=== PATIENT | female | born 1985 | race Caucasian/White ===

== ENCOUNTER 2016-08-19 20:37 | Emergency (ER) | payer OTHER ==
--- NOTE | 2016-08-20 00:15 | ED CLINICAL REPORT ---
Clinical Report - Physicians/Mid Levels [facility] [address] [place] [address] 08/19/2016 20:41 [id number] Time Seen: 00:15 Aug 20 2016; initial documentation. Arrived- By private vehicle. Historian- patient. CPT: ER phys charges level 3 (#[id number]). HISTORY OF PRESENT ILLNESS Chief Complaint: Injury to the left ankle. The injury happened yesterday. Occurred at home. ( scraped left ankle). Patient is experiencing mild pain. No other injury. REVIEW OF SYSTEMS The patient complains of pain on weight bearing. No swelling, tingling, weakness, numbness or suspected foreign body. No skin laceration. All systems otherwise negative, except as recorded above. PAST HISTORY See nurses notes. Tetanus immunization status is up-to-date. Medications: [place] Oral 300 mg , daily. Suboxone Sublingual 8mg , 2 x daily. ZyPREXA Oral 5 mg, daily. Allergies: Atropine. (Reaction as baby). SOCIAL HISTORY Heavy tobacco smoker (cigarette)- less than 1 pack per day. Alcohol use. History of drug use: marijuana. ADDITIONAL NOTES The nursing notes have been reviewed. PHYSICAL EXAM Vital Signs: 08/19/2016 22:01 BP: 141/82. HR: 86. RR: 18. O2 saturation: 100%. Temp: 98.1 F. Pain level now: 3/10. CVS: Normal heart rate and rhythm. Heart sounds normal. Respiratory: No respiratory distress. Back: No tenderness. Skin: Skin warm. Extremities: Warmth, tenderness and erythema present in the left ankle. No lymphangitis in the feet or ankles or fluctuance in the feet or ankles. Moderate soft-tissue tenderness in the left lateral ankle. No ankle injury. Extremities otherwise negative. Gait: Limping gait. Neuro, Vascular and Tendons: Vascular status intact. Sensation intact. Motor intact. Neuro: Oriented X 3. No motor deficit. No sensory deficit. PROGRESS AND PROCEDURES Patient/family counseled. Disposition: Discharged. Condition: stable. CLINICAL IMPRESSION Cellulitis of the left ankle. INSTRUCTIONS Apply moist heat for 15-20 minutes three times a day for three days until better. Do not work for two days until better. Warnings: GENERAL WARNINGS: Return or contact your physician immediately if your condition worsens or changes unexpectedly, if not improving as expected, or if other problems arise. Your Current Medications: CONTINUE TAKING THE FOLLOWING MEDICATIONS: [place] Oral : 300 mg daily. Suboxone Sublingual : 8mg 2 x daily. ZyPREXA Oral : 5 mg daily. Prescription Medications: Trimethoprim-Sulfamethoxazole DS: take 1 tablet orally every 12 hours for 7 days. Dispense fourteen (14). No refills. Follow-up: Return to the emergency department If worse. Follow up with your doctor Monday in three days if not better. Understanding of the discharge instructions verbalized by patient and family. (Electronically signed by Mikhail Rodriges MD 08/21/2016 21:23)
--- NOTE | 2016-08-20 00:15 | ED CLINICAL REPORT ---
Clinical Report - Physicians/Mid Levels [facility] [address] [place] [address] 08/19/2016 20:41 [id number] Time Seen: 00:15 Aug 20 2016; initial documentation. Arrived- By private vehicle. Historian- patient. CPT: ER phys charges level 3 (#[id number]). HISTORY OF PRESENT ILLNESS Chief Complaint: Injury to the left ankle. The injury happened yesterday. Occurred at home. ( scraped left ankle). Patient is experiencing mild pain. No other injury. REVIEW OF SYSTEMS The patient complains of pain on weight bearing. No swelling, tingling, weakness, numbness or suspected foreign body. No skin laceration. All systems otherwise negative, except as recorded above. PAST HISTORY See nurses notes. Tetanus immunization status is up-to-date. Medications: [place] Oral 300 mg , daily. Suboxone Sublingual 8mg , 2 x daily. ZyPREXA Oral 5 mg, daily. Allergies: Atropine. (Reaction as baby). SOCIAL HISTORY Heavy tobacco smoker (cigarette)- less than 1 pack per day. Alcohol use. History of drug use: marijuana. ADDITIONAL NOTES The nursing notes have been reviewed. PHYSICAL EXAM Vital Signs: 08/19/2016 22:01 BP: 141/82. HR: 86. RR: 18. O2 saturation: 100%. Temp: 98.1 F. Pain level now: 3/10. CVS: Normal heart rate and rhythm. Heart sounds normal. Respiratory: No respiratory distress. Back: No tenderness. Skin: Skin warm. Extremities: Warmth, tenderness and erythema present in the left ankle. No lymphangitis in the feet or ankles or fluctuance in the feet or ankles. Moderate soft-tissue tenderness in the left lateral ankle. No ankle injury. Extremities otherwise negative. Gait: Limping gait. Neuro, Vascular and Tendons: Vascular status intact. Sensation intact. Motor intact. Neuro: Oriented X 3. No motor deficit. No sensory deficit. PROGRESS AND PROCEDURES Patient/family counseled. Disposition: Discharged. Condition: stable. CLINICAL IMPRESSION Cellulitis of the left ankle. INSTRUCTIONS Apply moist heat for 15-20 minutes three times a day for three days until better. Do not work for two days until better. Warnings: GENERAL WARNINGS: Return or contact your physician immediately if your condition worsens or changes unexpectedly, if not improving as expected, or if other problems arise. Your Current Medications: CONTINUE TAKING THE FOLLOWING MEDICATIONS: [place] Oral : 300 mg daily. Suboxone Sublingual : 8mg 2 x daily. ZyPREXA Oral : 5 mg daily. Prescription Medications: Trimethoprim-Sulfamethoxazole DS: take 1 tablet orally every 12 hours for 7 days. Dispense fourteen (14). No refills. Follow-up: Return to the emergency department If worse. Follow up with your doctor Monday in three days if not better. Understanding of the discharge instructions verbalized by patient and family. (Electronically signed by Mikhail Rodriges MD 08/21/2016 21:23)
--- NOTE | 2016-08-20 00:16 | ED NURSING NOTES ---
Clinical Report - Nurses [facility] [address] [place] [address] 08/19/2016 20:41 Patient: JIMBO GUSMAN TRIAGE Triage time 22:01. Acuity: LEVEL 4. Chief Complaint: LEFT LOWER EXTREMITY SWELLING and REDNESS. Location of symptoms- left ankle (Sore on out side of left ankle). 22:07. Alert. SEPSIS SCREEN: Sepsis Screen. Negative (no infection suspected/documented). MED COMA SCORE: Med Coma Scale: 15- eyes open spontaneously (4); best verbal response- oriented x 4 (5); best motor response- obeys commands (6). --22:08 Nba Roblero R.N. 22:01 08/19/16. BP: 141/82. HR: 86. RR: 18. O2 saturation: 100% on room air. Temp: 98.1 F (oral). Pain level now: 10/21. --22:08 Nba Roblero R.N. Weight: 77.1 kg stated. Height/Length: 65 inches Per Patient. BMI: 28.3. --22:05 Nba Roblero R.N. Medications [place] Oral 300 mg , daily. Suboxone Sublingual 8mg , 2 x daily. ZyPREXA Oral 5 mg, daily. --22:04 Nba Roblero R.N. Medication/allergy information source: the patient. --22:08 Nba Roblero R.N. Allergies Atropine. (Reaction as baby) --22:04 Nba Roblero R.N. History Arrived by private vehicle. Historian: patient. Primary physician (Sanam HUTSON). An injury may have occurred. This occurred (3 days ago). Treatment CONTRACT ASSOCIATE: None. PAST MEDICAL HX: Tetanus status: up-to-date. Immunizations: up-to-date. Last normal menstrual period- 1 year ago. SOCIAL HX: Current every day heavy tobacco smoker- 1 pack per day. Occasional alcohol use. History of drug use: marijuana. (daily). No infectious disease exposure. ABUSE ASSESSMENT: No report of abuse. FALL RISK ASSESSMENT: Fall risk assessment completed. No fall risk identified. NUTRITIONAL RISK ASSESSMENT: The nutritional risk assessment revealed no deficiencies. FUNCTIONAL ASSESSMENT: Functional assessment: no impairments noted. LEARNING NEEDS ASSESSMENT: The learning needs assessment revealed no barriers. SKIN INTEGRITY ASSESSMENT: Skin integrity risk assessment completed. No skin integrity risk identified. --22:08 Nba Roblero R.N. PROBLEMS: MRSA Infection. Abscess. --22:04 Nba Roblero R.N. ADDITIONAL SURGERIES: [place] Teeth. --22:04 Nba Roblero R.N. Interventions ID band on patient. To treatment room. --22:08 Nba Roblero R.N. PHYSICAL ASSESSMENT Ambulatory to room. GENERAL / NEURO / PSYCH: Oriented X 4. Alert. Appears in no acute distress. EXTREMITIES: Left foot: swelling and erythema of the lateral aspect of the foot. SKIN: Skin intact. Skin is warm and dry. --23:25 Ashley Herzog R.N. NURSING PROGRESS NOTES <<STRICKEN ENTRY-- 23:10 08/19/16. Patient gowned. Two patient identifiers checked. Call light placed in reach. Side rails up x 1. Bed placed in lowest position. Brakes of bed on. Patient ready for evaluation. ( Patient brought to room). --23:16 Emerald Burton R.N. --END STRIKE>> Charted On Wrong Patient --23:17 Emerald Burton R.N. DISPOSITION / DISCHARGE Departure time: 0020. Condition at departure: unchanged. No learning barriers present. Reviewed medication(s). Prescription(s) given to the patient (Bactrim DS). Patient verbalized understanding. Written instructions provided in Italian. The patient was discharged by the physician. She was discharged home and accompanied by family. She left the Emergency Department ambulatory and via private vehicle. Family member driving. Medication list reviewed and validated with the patient. --04:42 Ashley Herzog R.N. 00:20 08/20/16. BP: deferred. HR: deferred. RR: deferred. O2 saturation: deferred. Temp: deferred. Pain level now deferred. Additional comments: pt refused vital signs. . --04:42 Ashley Herzog R.N. Locked/Released at 08/20/2016 4:42 by Ashley Herzog R.N.
--- NOTE | 2016-08-20 00:16 | ED NURSING NOTES ---
Clinical Report - Nurses [facility] [address] [place] [address] 08/19/2016 20:41 Patient: JIMBO GUSMAN TRIAGE Triage time 22:01. Acuity: LEVEL 4. Chief Complaint: LEFT LOWER EXTREMITY SWELLING and REDNESS. Location of symptoms- left ankle (Sore on out side of left ankle). 22:07. Alert. SEPSIS SCREEN: Sepsis Screen. Negative (no infection suspected/documented). MED COMA SCORE: Med Coma Scale: 15- eyes open spontaneously (4); best verbal response- oriented x 4 (5); best motor response- obeys commands (6). --22:08 Nba Roblero R.N. 22:01 08/19/16. BP: 141/82. HR: 86. RR: 18. O2 saturation: 100% on room air. Temp: 98.1 F (oral). Pain level now: 10/21. --22:08 Nba Roblero R.N. Weight: 77.1 kg stated. Height/Length: 65 inches Per Patient. BMI: 28.3. --22:05 Nba Roblero R.N. Medications [place] Oral 300 mg , daily. Suboxone Sublingual 8mg , 2 x daily. ZyPREXA Oral 5 mg, daily. --22:04 Nba Roblero R.N. Medication/allergy information source: the patient. --22:08 Nba Roblero R.N. Allergies Atropine. (Reaction as baby) --22:04 Nba Roblero R.N. History Arrived by private vehicle. Historian: patient. Primary physician (Sanam HUTSON). An injury may have occurred. This occurred (3 days ago). Treatment PATHOLOGIST: None. PAST MEDICAL HX: Tetanus status: up-to-date. Immunizations: up-to-date. Last normal menstrual period- 1 year ago. SOCIAL HX: Current every day heavy tobacco smoker- 1 pack per day. Occasional alcohol use. History of drug use: marijuana. (daily). No infectious disease exposure. ABUSE ASSESSMENT: No report of abuse. FALL RISK ASSESSMENT: Fall risk assessment completed. No fall risk identified. NUTRITIONAL RISK ASSESSMENT: The nutritional risk assessment revealed no deficiencies. FUNCTIONAL ASSESSMENT: Functional assessment: no impairments noted. LEARNING NEEDS ASSESSMENT: The learning needs assessment revealed no barriers. SKIN INTEGRITY ASSESSMENT: Skin integrity risk assessment completed. No skin integrity risk identified. --22:08 Nba Roblero R.N. PROBLEMS: MRSA Infection. Abscess. --22:04 Nba Roblero R.N. ADDITIONAL SURGERIES: [place] Teeth. --22:04 Nba Roblero R.N. Interventions ID band on patient. To treatment room. --22:08 Nba Roblero R.N. PHYSICAL ASSESSMENT Ambulatory to room. GENERAL / NEURO / PSYCH: Oriented X 4. Alert. Appears in no acute distress. EXTREMITIES: Left foot: swelling and erythema of the lateral aspect of the foot. SKIN: Skin intact. Skin is warm and dry. --23:25 Ashley Herzog R.N. NURSING PROGRESS NOTES <<STRICKEN ENTRY-- 23:10 08/19/16. Patient gowned. Two patient identifiers checked. Call light placed in reach. Side rails up x 1. Bed placed in lowest position. Brakes of bed on. Patient ready for evaluation. ( Patient brought to room). --23:16 Emerald Burton R.N. --END STRIKE>> Charted On Wrong Patient --23:17 Emerald Burton R.N. DISPOSITION / DISCHARGE Departure time: 0020. Condition at departure: unchanged. No learning barriers present. Reviewed medication(s). Prescription(s) given to the patient (Bactrim DS). Patient verbalized understanding. Written instructions provided in Yi. The patient was discharged by the physician. She was discharged home and accompanied by family. She left the Emergency Department ambulatory and via private vehicle. Family member driving. Medication list reviewed and validated with the patient. --04:42 Ashley Herzog R.N. 00:20 08/20/16. BP: deferred. HR: deferred. RR: deferred. O2 saturation: deferred. Temp: deferred. Pain level now deferred. Additional comments: pt refused vital signs. . --04:42 Ashley Herzog R.N. Locked/Released at 08/20/2016 4:42 by Ashley Herzog R.N.
--- NOTE | 2016-08-21 21:24 | ED MED RECONCILIATION SUMMARY ---
Patient: JIMBO GSUMAN Medication Reconciliation Report [facility] VisitID: [id number] [address] [place] [address] 31y, F Registration Date/Time: 08/19/2016 Weight: 77.1 kg Height/Length: 65 in. BMI: 28.3 ALLERGIES: Atropine The patient's Home Medications are listed below: CONTINUE TAKING THE FOLLOWING MEDICATIONS: [place] Oral 300 mg , daily Suboxone Sublingual 8mg , 2 x daily ZyPREXA Oral 5 mg, daily The source(s) of the original Home Medication information: patient The following Medications were given to the patient in the Emergency Department: None. The following Medications were prescribed to the patient: Trimethoprim-Sulfamethoxazole DS: take 1 tablet orally every 12 hours for 7 days. Dispense fourteen (14). No refills. -- Mikhail Rodriges MD
--- NOTE | 2016-08-21 21:24 | ED DISCHARGE INSTRUCTIONS ---
Patient: JIMBO GUSMAN General Instructions [facility] VisitID: [id number] [place] [address] 31y, F Registration Date/Time: 08/19/2016 Cellulitis of the left ankle. INSTRUCTIONS Apply moist heat for 15-20 minutes three times a day for three days until better. Do not work for two days until better. Warnings: GENERAL WARNINGS: Return or contact your physician immediately if your condition worsens or changes unexpectedly, if not improving as expected, or if other problems arise. Your Current Medications: CONTINUE TAKING THE FOLLOWING MEDICATIONS: [place] Oral : 300 mg daily. Suboxone Sublingual : 8mg 2 x daily. ZyPREXA Oral : 5 mg daily. Prescription Medications: Trimethoprim-Sulfamethoxazole DS: take 1 tablet orally every 12 hours for 7 days. Dispense fourteen (14). No refills. Follow-up: Return to the emergency department If worse. Follow up with your doctor Monday in three days if not better. Understanding of the discharge instructions verbalized by patient and family. ADDITIONAL INFORMATION Cellulitis You have an infection of the skin known as cellulitis. This usually starts with a scrape, cut, insect bite, blister or other opening in the skin which becomes infected. This is a serious condition. It must be watched closely to be sure the infection is not spreading. With antibiotic treatment, the size of the red area will gradually shrink in size until the skin returns to normal. This will take 7-10 days. The red area should never increase in size once the antibiotic medicine has been started. Occasionally, an infection will be resistant to one antibiotic and another one will have to be used. Home Care: 1) Limit the use of the affected part, since excess movement can cause the infection to spread. 2) If the infection is on your leg, walk as little as possible during the first few days of the treatment. Keep your leg elevated while sitting. This will reduce swelling. 3) Take all of the antibiotic medicine exactly as directed until it is gone. Be careful not to miss any doses, especially during the first seven days. Follow Up with your doctor or this facility as directed. Check the infected area daily for the warning signs listed below. Get Prompt Medical Attention if any of the following occur: -- Spreading area of redness -- Increasing swelling or pain -- Appearance of pus or drainage -- Fever over 100.4 F (38.0 C) oral, or over 101.4 F (38.6 C) rectal, after two days on antibiotics You have been given the following additional information: Cellulitis Do not work for two days until better. (Electronically signed by Mikhail Rodriges MD 08/21/2016 21:23)
--- NOTE | 2016-08-21 21:24 | ED MAR SUMMARY ---
..... Medication Administration Record [facility] [address] [place], [place] [id number] Patient: JIMBO GUSMAN Visit ID: [id number] 31y, F Weight: 77.1 kg Height/Length: 65 in BMI: 28.3 ALLERGIES: Atropine
--- NOTE | 2016-08-21 21:24 | ED MAR SUMMARY ---
..... Medication Administration Record [facility] [address] [place], [place] [id number] Patient: JIMBO GUSMAN Visit ID: [id number] 31y, F Weight: 77.1 kg Height/Length: 65 in BMI: 28.3 ALLERGIES: Atropine
--- NOTE | 2016-08-21 21:24 | ED MED RECONCILIATION SUMMARY ---
Patient: JIMBO GUSMAN Medication Reconciliation Report [facility] VisitID: [id number] [address] [place] [address] 31y, F Registration Date/Time: 08/19/2016 Weight: 77.1 kg Height/Length: 65 in. BMI: 28.3 ALLERGIES: Atropine The patient's Home Medications are listed below: CONTINUE TAKING THE FOLLOWING MEDICATIONS: [place] Oral 300 mg , daily Suboxone Sublingual 8mg , 2 x daily ZyPREXA Oral 5 mg, daily The source(s) of the original Home Medication information: patient The following Medications were given to the patient in the Emergency Department: None. The following Medications were prescribed to the patient: Trimethoprim-Sulfamethoxazole DS: take 1 tablet orally every 12 hours for 7 days. Dispense fourteen (14). No refills. -- Mikhail Rodriges MD
--- NOTE | 2016-08-21 21:24 | ED DISCHARGE INSTRUCTIONS ---
Patient: JIMBO GUSMAN General Instructions [facility] VisitID: [id number] [place] [address] 31y, F Registration Date/Time: 08/19/2016 Cellulitis of the left ankle. INSTRUCTIONS Apply moist heat for 15-20 minutes three times a day for three days until better. Do not work for two days until better. Warnings: GENERAL WARNINGS: Return or contact your physician immediately if your condition worsens or changes unexpectedly, if not improving as expected, or if other problems arise. Your Current Medications: CONTINUE TAKING THE FOLLOWING MEDICATIONS: [place] Oral : 300 mg daily. Suboxone Sublingual : 8mg 2 x daily. ZyPREXA Oral : 5 mg daily. Prescription Medications: Trimethoprim-Sulfamethoxazole DS: take 1 tablet orally every 12 hours for 7 days. Dispense fourteen (14). No refills. Follow-up: Return to the emergency department If worse. Follow up with your doctor Monday in three days if not better. Understanding of the discharge instructions verbalized by patient and family. ADDITIONAL INFORMATION Cellulitis You have an infection of the skin known as cellulitis. This usually starts with a scrape, cut, insect bite, blister or other opening in the skin which becomes infected. This is a serious condition. It must be watched closely to be sure the infection is not spreading. With antibiotic treatment, the size of the red area will gradually shrink in size until the skin returns to normal. This will take 7-10 days. The red area should never increase in size once the antibiotic medicine has been started. Occasionally, an infection will be resistant to one antibiotic and another one will have to be used. Home Care: 1) Limit the use of the affected part, since excess movement can cause the infection to spread. 2) If the infection is on your leg, walk as little as possible during the first few days of the treatment. Keep your leg elevated while sitting. This will reduce swelling. 3) Take all of the antibiotic medicine exactly as directed until it is gone. Be careful not to miss any doses, especially during the first seven days. Follow Up with your doctor or this facility as directed. Check the infected area daily for the warning signs listed below. Get Prompt Medical Attention if any of the following occur: -- Spreading area of redness -- Increasing swelling or pain -- Appearance of pus or drainage -- Fever over 100.4 F (38.0 C) oral, or over 101.4 F (38.6 C) rectal, after two days on antibiotics You have been given the following additional information: Cellulitis Do not work for two days until better. (Electronically signed by Mikhail Rodriges MD 08/21/2016 21:23)
== END 2016-08-20 00:20 | disposition home or self-care (01) ==
LOC: ED SRH 20:37
DX: L03.116 Cellulitis of left lower limb (principal); X58.XXXA Exposure to other specified factors, initial encounter; Y93.9 Activity, unspecified; Y92.009 Unspecified place in unspecified non-institutional (private) residence as the place of occurrence of the external cause; Y99.9 Unspecified external cause status; Z79.899 Other long term (current) drug therapy; F17.210 Nicotine dependence, cigarettes, uncomplicated; Z88.8 Allergy status to other drugs, medicaments and biological substances

== ENCOUNTER 2016-11-05 00:33 | Emergency (ER) | payer OTHER ==
--- NOTE | 2016-11-05 04:33 | ED NURSING NOTES ---
Clinical Report - Nurses [facility] [address] [place] [address] 11/05/2016 0:33 Patient: MICHAELA GUSMAN TRIAGE Triage time 00:52. Acuity: LEVEL 4. Chief Complaint: RIGHT EAR PAIN and SWEATS (Onset of ear pain 3-4 days ago; describes pain as throbbing and hot, pain radiates down to jaw. Alleviating factors: none, Aggravating factors: touching it, lying on it.). Alert. No acute distress. SEPSIS SCREEN: Sepsis Screen: negative. Negative (no infection suspected/documented). --00:59 Boy Elizondo R.N. 00:52 11/05/16. BP: 133/86 (regular adult cuff) taken on the right arm, via an automated monitor, while sitting. HR: 84 (normal rate). RR: 16 (regular, unlabored and normal). O2 saturation: 100% on room air. Temp: 98.2 F (oral). Pain level now: 03/23. --00:59 Boy Elizondo R.N. correction to prior entry -00:59. --01:00 Boy Elizondo R.N. Weight: 90.7 kg stated. Height/Length: 65 inches Per Patient. BMI: 33.3. --00:53 Boy Elizondo R.N. Medications [place] Oral 300 mg , daily. Suboxone Sublingual 8mg , 2 x daily. ZyPREXA Oral 5 mg, daily. --04:42 Emerald Burton R.N. Allergies Atropine. (Reaction as baby) --04:42 Emerald Burton R.N. History Arrived by private vehicle. Historian: patient. Unaccompanied. Primary physician (None). Onset. (about 3 - 4 days ago). She has had severe right ear pain radiating to the jaw. 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 (Last dose (400 mg) around 1700 11/04/16 with no relief of pain.). PAST MEDICAL HX: Last normal menstrual period- Never had regular period. Denies current . SOCIAL HX: Current every day heavy tobacco smoker (cigarette)- 1 pack per day. Occasional alcohol use. History of occasional drug use: marijuana. She has not traveled outside the [place] The patient was exposed to MRSA. ABUSE ASSESSMENT: Abuse assessment: The patient was asked "Do you feel safe in your home?" and "Has anyone hurt you or threatened to hurt you?". No report of abuse. SELF HARM ASSESSMENT: A self harm assessment was performed. The patient answered "no" to the question "Do you have thoughts of harming or killing yourself?" and "Have you recently had thoughts about harming or killing others?". FALL RISK ASSESSMENT: Fall risk assessment completed. No fall risk identified. NUTRITIONAL RISK ASSESSMENT: The nutritional risk assessment revealed no deficiencies. FUNCTIONAL ASSESSMENT: Functional assessment: no impairments noted. LEARNING NEEDS ASSESSMENT: The learning needs assessment revealed no barriers. SKIN INTEGRITY ASSESSMENT: Skin integrity risk assessment completed. No skin integrity risk identified. --00:59 Boy Elizondo R.N. PROBLEMS: MRSA Infection. Substance Abuse. Cellulitis. --04:42 Emerald Burton R.N. ADDITIONAL SURGERIES: [place] . [place] Teeth. --04:42 Emerald Burton R.N. Assessment GENERAL / NEURO / PSYCH: Alert. Oriented X 4. Appears in no acute distress. Med Coma Scale: 15- eyes open spontaneously (4); best verbal response- oriented x 4 (5); best motor response- obeys commands (6). Patient appears calm and cooperative. HEENT: Erythema and pain upon movement of the right auricle; inflammation and cerumen present in the right external auditory canal; right TM reveals erythema. Inflammation present in the left external auditory canal; left TM reveals erythema. No pain upon movement of the left auricle. RESPIRATORY: Respirations not labored. SKIN: Skin is warm and dry. --00:59 Boy Elizondo R.N. Interventions ID band on patient. To treatment room. --00:59 Boy Elizondo R.N. To waiting room. --01:00 DeElena, Boy, R.N. PHYSICAL ASSESSMENT 03:38 11/05/16. GENERAL / NEURO / PSYCH: Alert. Appears in pain. HEENT: No facial asymmetry noted. Pupils equal, round and reactive to light. Pain upon movement of the right auricle; inflammation present in the right external auditory canal. No nasal discharge. No hearing deficit. RESPIRATORY: Respirations not labored. CVS: Capillary refill less than 2 seconds. SKIN: Skin is warm and dry. --03:38 Emerald Burton R.N. NURSING PROGRESS NOTES 02:56 11/05/16. Patient ready for evaluation- ED physician notified. ( Brought to room 4, ready for exam). --02:56 Emerald Burton R.N. 02:56 11/05/16. BP: 129/88. HR: 86. RR: 18. O2 saturation: 100%. Temp: 98.4 F. Pain level now 8/10. --02:56 Emerald Burton R.N. 03:30 11/05/2016 FJCZWAO-CGODTG-ALFRO PERTUSSIS IM 0.5 mL given. (Lot#: [id number], expiration date: 05/21/2018, Accountant Budget: sanofi pasteur). Given in the left deltoid. Allergies verified and confirmed 5 rights. Vaccine information statement provided to the patient. --03:35 Emerald Burton R.N. 03:38 11/05/2016 Lidocaine-Epinephrine (Lidocaine-Epinephrine) Injection Injectable 2 % given. (MED GIVEN TO MD FOR LOCAL ADMINISTRATION). --03:38 Emerald Burton R.N. 03:54 11/05/2016 Toradol (Ketorolac Tromethamine) IM 60 mg given. Given in the left gluteus catracho. Allergies verified and confirmed 5 rights. --03:55 Emerald Burton R.N. 04:20. I & D: Incision and Drainage of abscess performed by ED physician. Assisted by one tech. Preparation: Incision and Drainage tray set up. Procedure; a small amount of pus was drained. Cavity was irrigated with saline and packed with gauze. A dressing was applied. --04:28 McQuoid, Michaela, ER Tech1. DISPOSITION / DISCHARGE 04:41 11/05/16. Departure time: 04:41 Nov 05 2016. Condition at departure: improved and stable. The goals identified in the patient's plan of care were met. No learning barriers present. Reviewed medication(s) side effects, precautions, dosing and course information. Prescription(s) given to the patient. Reviewed referral to a primary care physician for followup. Summary of care provided to patient via paper. Patient verbalized understanding. Written instructions provided in Portuguese. The patient was discharged home and unaccompanied at time of discharge. She left the Emergency Department ambulatory and via private vehicle. Patient driving. --04:41 Emerald Burton R.N. 04:41 11/05/16. BP: 118/73. HR: 74. RR: 15. O2 saturation: 100%. Temp: 97.9 F. Pain level now 3/10. --04:41 Emerald Burton R.N. Locked/Released at 11/05/2016 4:43 by Emerald Burton R.N.
--- NOTE | 2016-11-05 04:33 | ED NURSING NOTES ---
Clinical Report - Nurses [facility] [address] [place] [address] 11/05/2016 0:33 Patient: MICHAELA GUSMAN TRIAGE Triage time 00:52. Acuity: LEVEL 4. Chief Complaint: RIGHT EAR PAIN and SWEATS (Onset of ear pain 3-4 days ago; describes pain as throbbing and hot, pain radiates down to jaw. Alleviating factors: none, Aggravating factors: touching it, lying on it.). Alert. No acute distress. SEPSIS SCREEN: Sepsis Screen: negative. Negative (no infection suspected/documented). --00:59 Boy Elizondo R.N. 00:52 11/05/16. BP: 133/86 (regular adult cuff) taken on the right arm, via an automated monitor, while sitting. HR: 84 (normal rate). RR: 16 (regular, unlabored and normal). O2 saturation: 100% on room air. Temp: 98.2 F (oral). Pain level now: 03/23. --00:59 Boy Elizondo R.N. correction to prior entry -00:59. --01:00 Boy Elizondo R.N. Weight: 90.7 kg stated. Height/Length: 65 inches Per Patient. BMI: 33.3. --00:53 Boy Elizondo R.N. Medications [place] Oral 300 mg , daily. Suboxone Sublingual 8mg , 2 x daily. ZyPREXA Oral 5 mg, daily. --04:42 Emerald Burton R.N. Allergies Atropine. (Reaction as baby) --04:42 Emerald Burton R.N. History Arrived by private vehicle. Historian: patient. Unaccompanied. Primary physician (None). Onset. (about 3 - 4 days ago). She has had severe right ear pain radiating to the jaw. 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 (Last dose (400 mg) around 1700 11/04/16 with no relief of pain.). PAST MEDICAL HX: Last normal menstrual period- Never had regular period. Denies current . SOCIAL HX: Current every day heavy tobacco smoker (cigarette)- 1 pack per day. Occasional alcohol use. History of occasional drug use: marijuana. She has not traveled outside the [place] The patient was exposed to MRSA. ABUSE ASSESSMENT: Abuse assessment: The patient was asked "Do you feel safe in your home?" and "Has anyone hurt you or threatened to hurt you?". No report of abuse. SELF HARM ASSESSMENT: A self harm assessment was performed. The patient answered "no" to the question "Do you have thoughts of harming or killing yourself?" and "Have you recently had thoughts about harming or killing others?". FALL RISK ASSESSMENT: Fall risk assessment completed. No fall risk identified. NUTRITIONAL RISK ASSESSMENT: The nutritional risk assessment revealed no deficiencies. FUNCTIONAL ASSESSMENT: Functional assessment: no impairments noted. LEARNING NEEDS ASSESSMENT: The learning needs assessment revealed no barriers. SKIN INTEGRITY ASSESSMENT: Skin integrity risk assessment completed. No skin integrity risk identified. --00:59 Boy Elizondo R.N. PROBLEMS: MRSA Infection. Substance Abuse. Cellulitis. --04:42 Emerald Burton R.N. ADDITIONAL SURGERIES: [place] . [place]eth. --04:42 Emerald Burton R.N. Assessment GENERAL / NEURO / PSYCH: Alert. Oriented X 4. Appears in no acute distress. Med Coma Scale: 15- eyes open spontaneously (4); best verbal response- oriented x 4 (5); best motor response- obeys commands (6). Patient appears calm and cooperative. HEENT: Erythema and pain upon movement of the right auricle; inflammation and cerumen present in the right external auditory canal; right TM reveals erythema. Inflammation present in the left external auditory canal; left TM reveals erythema. No pain upon movement of the left auricle. RESPIRATORY: Respirations not labored. SKIN: Skin is warm and dry. --00:59 Boy Elizondo R.N. Interventions ID band on patient. To treatment room. --00:59 Boy Elizondo R.N. To waiting room. --01:00 DeElena, Boy, R.N. PHYSICAL ASSESSMENT 03:38 11/05/16. GENERAL / NEURO / PSYCH: Alert. Appears in pain. HEENT: No facial asymmetry noted. Pupils equal, round and reactive to light. Pain upon movement of the right auricle; inflammation present in the right external auditory canal. No nasal discharge. No hearing deficit. RESPIRATORY: Respirations not labored. CVS: Capillary refill less than 2 seconds. SKIN: Skin is warm and dry. --03:38 Emerald Burton R.N. NURSING PROGRESS NOTES 02:56 11/05/16. Patient ready for evaluation- ED physician notified. ( Brought to room 4, ready for exam). --02:56 Emerald Burton R.N. 02:56 11/05/16. BP: 129/88. HR: 86. RR: 18. O2 saturation: 100%. Temp: 98.4 F. Pain level now 8/10. --02:56 Emerald Burton R.N. 03:30 11/05/2016 YGBUTNG-AILDZM-EHXPI PERTUSSIS IM 0.5 mL given. (Lot#: [id number], expiration date: 05/21/2018, Loss Prevention Manager: sanofi pasteur). Given in the left deltoid. Allergies verified and confirmed 5 rights. Vaccine information statement provided to the patient. --03:35 Emerald Burton R.N. 03:38 11/05/2016 Lidocaine-Epinephrine (Lidocaine-Epinephrine) Injection Injectable 2 % given. (MED GIVEN TO MD FOR LOCAL ADMINISTRATION). --03:38 Emerald Burton R.N. 03:54 11/05/2016 Toradol (Ketorolac Tromethamine) IM 60 mg given. Given in the left gluteus catracho. Allergies verified and confirmed 5 rights. --03:55 Emerald Burton R.N. 04:20. I & D: Incision and Drainage of abscess performed by ED physician. Assisted by one tech. Preparation: Incision and Drainage tray set up. Procedure; a small amount of pus was drained. Cavity was irrigated with saline and packed with gauze. A dressing was applied. --04:28 McQuoid, Michaela, ER Tech1. DISPOSITION / DISCHARGE 04:41 11/05/16. Departure time: 04:41 Nov 05 2016. Condition at departure: improved and stable. The goals identified in the patient's plan of care were met. No learning barriers present. Reviewed medication(s) side effects, precautions, dosing and course information. Prescription(s) given to the patient. Reviewed referral to a primary care physician for followup. Summary of care provided to patient via paper. Patient verbalized understanding. Written instructions provided in [place]. The patient was discharged home and unaccompanied at time of discharge. She left the Emergency Department ambulatory and via private vehicle. Patient driving. --04:41 Emerald Burton R.N. 04:41 11/05/16. BP: 118/73. HR: 74. RR: 15. O2 saturation: 100%. Temp: 97.9 F. Pain level now 3/10. --04:41 Emerald Burton R.N. Locked/Released at 11/05/2016 4:43 by Emerald Burton R.N.
--- NOTE | 2016-11-05 04:33 | ED ORDER SUMMARY ---
..... Patient: JIMBO GUSMAN OrderSheet [facility] VisitID: [id number] [place] [address] 31y, F Registration Date/Time: 11/05/2016 ORDER SHEET Weight: 90.7 kg (stated) Allergies: Atropine GENERAL ORDERS: I&D Tray (03:26 11/05/2016 Santo Jones) (Ack 3:27 AMcQuoid ER Tech1) (3:34 EInderbitzen R.N.) MEDICATION ORDERS: Gqstzad-Mheylp-Jntyi Pertussis IM 0.5 mL (NOW, per protocol) (03:26 11/05/2016 Santo Jones) (3:35 EInderbitshane R.N.) Lidocaine-Epinephrine Injection 1% (place at bedside, with syringes & needles) (03:11/05/2016 Santo Jones) (3:38 EInderbitshane R.N.) Percocet PO 5/325 mg (HIGH ALERT MEDICATION, NOW) (03:26 11/05/2016 Santo Jones) (Cancelled: Patient Refusal3:36 EInderbitzen R.N.) Toradol IM 60 mg (NOW) (03:55 11/05/2016 EIaurelia R.NBrandt verbal order read back to Santo Jones) (3:55 EInderbitzen R.N.) Keflex PO 500 mg (NOW) (04:31 11/05/2016 Santo Jones) (Cancelled: Patient Left4:43 EInderbitzen R.N.) Bactrim DS PO (Tablet 800-160 mg) 1 tab (NOW) (04:31 11/05/2016 Santo Jones) (Cancelled: Patient Left4:43 EInderbitzen R.N.) IV FLUIDS: ORDER SHEET NOTES: [Electronically signed by Emerald Burton R.N. (04:43 11/05/2016)] [Electronically signed by Trell Callejas Dr. (06:12 11/07/2016)] [Electronically locked/signed by Emerald Burton R.N. (04:43 11/05/2016)]
--- NOTE | 2016-11-05 04:33 | ED ORDER SUMMARY ---
..... Patient: JIMBO GUSMAN OrderSheet [facility] VisitID: [id number] [place] [address] 31y, F Registration Date/Time: 11/05/2016 ORDER SHEET Weight: 90.7 kg (stated) Allergies: Atropine GENERAL ORDERS: I&D Tray (03:26 11/05/2016 Santo Jones) (Ack 3:27 AMcQuoid ER Tech1) (3:34 EInderbitzen R.N.) MEDICATION ORDERS: Ajjaetm-Hgyukc-Dcvvk Pertussis IM 0.5 mL (NOW, per protocol) (03:26 11/05/2016 Santo Jones) (3:35 EInderbitshane R.N.) Lidocaine-Epinephrine Injection 1% (place at bedside, with syringes & needles) (03:11/05/2016 Santo Jones) (3:38 EInderbitshane R.N.) Percocet PO 5/325 mg (HIGH ALERT MEDICATION, NOW) (03:26 11/05/2016 Santo Jones) (Cancelled: Patient Refusal3:36 EInderbitzen R.N.) Toradol IM 60 mg (NOW) (03:55 11/05/2016 EIaurelia R.NBrandt verbal order read back to Santo Jones) (3:55 EInderbitzen R.N.) Keflex PO 500 mg (NOW) (04:31 11/05/2016 Santo Jones) (Cancelled: Patient Left4:43 EInderbitzen R.N.) Bactrim DS PO (Tablet 800-160 mg) 1 tab (NOW) (04:31 11/05/2016 Santo Jones) (Cancelled: Patient Left4:43 EInderbitzen R.N.) IV FLUIDS: ORDER SHEET NOTES: [Electronically signed by Emerald Burton R.N. (04:43 11/05/2016)] [Electronically signed by Trell Callejas Dr. (06:12 11/07/2016)] [Electronically locked/signed by Emerald Burton R.N. (04:43 11/05/2016)]
--- NOTE | 2016-11-05 04:33 | ED CLINICAL REPORT ---
Clinical Report - Physicians/Mid Levels [facility] [address] [place] [address] 11/05/2016 0:33 Patient: JIMBO GUSMAN Time Seen: 0327. Arrived- By private vehicle. Historian- patient. HISTORY OF PRESENT ILLNESS Chief Complaint: SKIN RASH and BOIL. This started past few days and is still present and worsening. It was gradual in onset and has been constant but is not gone now. It is described as painful. It has been located on the left buttocks. No cause has been identified. No recent medication, insect bite or food exposure. Was not recently exposed to poison jose or poison oak. (states it was a "pimple" and she popped it today. Reports no known hx of MRSA. States she also had an itch in the right ear. Reports she "popped" something and had severe pain afterwards. Described as moderate and worsening. No hearing problems. No drainage. No trismus.). Similar symptoms previously: Recent medical care: Not recently seen/assessed. REVIEW OF SYSTEMS No fever, sore throat, cough, difficulty breathing or hoarseness. No chest pain, abdominal pain, nausea or vomiting. All systems otherwise negative, except as recorded above. PAST HISTORY See nurses notes. Tetanus immunization status is unknown. SOCIAL HISTORY Smoker- current status unknown. Alcohol use. History of drug use: marijuana. No recent travel. Is a local resident. ADDITIONAL NOTES The nursing notes have been reviewed. PHYSICAL EXAM Vital Signs: 11/05/2016 00:52 BP: 133/86. HR: 84. RR: 16. O2 saturation: 100%. Temp: 98.2 F. Pain level now: 8/10. Blood pressure normal. Oxygen saturation normal. Appearance: Alert. Oriented X3. No acute distress. Eyes: Pupils equal, round and reactive to light. Conjunctivae and eyelids normal. ENT: Nose normal. Pharynx normal. ( swollen anterior aspect of the external auditory canal. No drainage. No absceess. tender. No proptosis of the ear. No mastoid tenderness.). Neck: Neck supple. CVS: Normal heart rate and rhythm. Heart sounds normal. Respiratory: No respiratory distress. Breath sounds normal. Chest nontender. Abdomen: Nontender. No organomegaly. Skin: Single medium tender indurated area with drainage and cellulitis to left buttock. Medium area of cellulitis to left buttock. Single medium abscess to left buttock. (Does not involve the groin in inguinal area. Exam performed with Emerald PEREZ appraisal specialist at all times). Extremities: Normal external inspection. Extremities nontender. PROGRESS AND PROCEDURES Incision & Drainage of Abscess: The abscess is located in the right buttock. The risks of the procedure, benefits and alternatives were explained. Anesthesia provided using 1% lidocaine with epi. Skin cleansed with Betadine. The abscess was incised with a #11 surgical blade. A small amount of pus was drained. Cavity was irrigated with saline and packed with gauze. A dressing was applied. Estimated blood loss: < 2 mL. ( Informed verbal consent obtained. Performed with ISAEL Jennings appraisal specialist at all times.). Course of Care: The patient is a pleasant 31-year-old female presenting for evaluation of abscess and irritation to the ear. On examination, patient has an abscess requiring drainage here in the emergency department as well as otitis externa. Patient likely will need antibiotics for these entities. Patient was agreeable to bedside incision and drainage of the abscess. Please see procedure note for further details. No complicationsfrom procedure. Patient tolerated procedure well. No systemic signs and symptoms at this time. Did not feel patient needs be admitted to the hospital require further emergency department workup/evaluation. Patient will be prescribed antibiotics for the infection of the buttocks as well as the ear infection. Discussed with patient workup here in the emergency department as well as diagnosis, home care, follow-up, and return precautions. All questions have been answered. The patient expressed understanding of these instructions and was agreeable to them. Disposition: Discharged. Condition: good. CLINICAL IMPRESSION Cellulitis (acute left buttocks). Single deep abscess with incision and drainage (acute left buttocks). Acute right otitis externa. INSTRUCTIONS (Wound needs to be rechecked in 24 - 48 hours). Warnings: GENERAL WARNINGS: Return or contact your physician immediately if your condition worsens or changes unexpectedly, if not improving as expected, or if other problems arise. Specifically return if pain, vomiting, bleeding, breathing difficulty or fever. Prescription Medications: Keflex 500 mg: take 1 capsule orally every 8 hours for 10 days. No refill. Substitution is permissible. (Disp 30 caps) Bactrim DS 800 mg / 160 mg: take 1 tablet orally every 12 hours for 10 days. No refill. Substitution is permissible. (Disp 20 tabs) Cortisporin otic suspension: instill 1 drop into the affected ear as needed for earache every 6 hours until symptoms improve. Dispense one (1) bottle. No refills. Substitution is permissible. Percocet 5 mg/325 mg: take 1 tablet orally every 6 hours as needed for pain. Dispense ten (10). No refill. Substitution is permissible. Follow-up: Return to the emergency department as needed. Follow up with your doctor in three days. Reason for referral: recheck today's concerns. Summary of care provided to patient via paper. Screening today revealed the patient's blood pressure to be in the normal range. The patient should follow up with a primary care provider for blood pressure management. Understanding of the discharge instructions verbalized by patient. (Electronically signed by Trell Callejas Dr. 11/07/2016 6:12)
--- NOTE | 2016-11-07 06:12 | ED MED RECONCILIATION SUMMARY ---
Patient: JIMBO GUSMAN Medication Reconciliation Report [facility] VisitID: [id number] [place] [address] 31y, F Registration Date/Time: 11/05/2016 Weight: 90.7 kg Height/Length: 65 in. BMI: 33.3 ALLERGIES: Atropine The patient's Home Medications are listed below: THE FOLLOWING MEDICATIONS NEED TO BE RECONCILED: [place] Oral 300 mg , daily Suboxone Sublingual 8mg , 2 x daily ZyPREXA Oral 5 mg, daily The source(s) of the original Home Medication information: Not obtained. The following Medications were given to the patient in the Emergency Department: WOXUKHF-VUQEQC-EHVGN PERTUSSIS [IM] IM 0.5 mL, administered: 11/05/2016 3:30:00 AM Lidocaine-Epinephrine [Injection] Injection 2 %, administered: 11/05/2016 3:38:00 AM Toradol [IM] IM 60 mg, administered: 11/05/2016 3:54:00 AM The following Medications were prescribed to the patient: Keflex 500 mg: take 1 capsule orally every 8 hours for 10 days. No refill. Substitution is permissible.(Disp 30 caps) -- Trell Callejas Dr. Bactrim DS 800 mg / 160 mg: take 1 tablet orally every 12 hours for 10 days. No refill. Substitution is permissible.(Disp 20 tabs) -- Trell Callejas Dr. Cortisporin otic suspension: instill 1 drop into the affected ear as needed for earache every 6 hours until symptoms improve. Dispense one (1) bottle. No refills. Substitution is permissible. -- Trell Callejas Dr. Percocet 5 mg/325 mg: take 1 tablet orally every 6 hours as needed for pain. Dispense ten (10). No refill. Substitution is permissible. -- Trell Callejas Dr.
--- NOTE | 2016-11-07 06:12 | ED MAR SUMMARY ---
..... Medication Administration Record [facility] [address] [place] [address] Patient: JIMBO GUSMAN Visit ID: [id number] 31y, F Weight: 90.7 kg Height/Length: 65 in BMI: 33.3 ALLERGIES: Atropine Given 03:30 11/05/2016 Emerald Burton R.N. Medication Administered: KMYINUV-QKEQAP-XOZNU PERTUSSIS [IM], Dose: 0.5 mL IM. Medication Ordered: Iqfmsew-Bonqpb-Dvyli Pertussis IM 0.5 mL (NOW, per protocol). Given 03:38 11/05/2016 Emerald Burton R.N. Medication Administered: LIDOCAINE-EPINEPHRINE [INJECTION] (LIDOCAINE-EPINEPHRINE), Dose: 2 % Injectable Injection. Medication Ordered: Lidocaine-Epinephrine Injection 1% (place at bedside, with syringes & needles). Given 03:54 11/05/2016 Emerald Burton R.N. Medication Administered: TORADOL [IM] (KETOROLAC TROMETHAMINE), Dose: 60 mg IM. Medication Ordered: Toradol IM 60 mg (NOW).
--- NOTE | 2016-11-07 06:12 | ED MED RECONCILIATION SUMMARY ---
Patient: JIMBO GUSMAN Medication Reconciliation Report [facility] VisitID: [id number] [place] [address] 31y, F Registration Date/Time: 11/05/2016 Weight: 90.7 kg Height/Length: 65 in. BMI: 33.3 ALLERGIES: Atropine The patient's Home Medications are listed below: THE FOLLOWING MEDICATIONS NEED TO BE RECONCILED: [place] Oral 300 mg , daily Suboxone Sublingual 8mg , 2 x daily ZyPREXA Oral 5 mg, daily The source(s) of the original Home Medication information: Not obtained. The following Medications were given to the patient in the Emergency Department: [id number] PERTUSSIS [IM] IM 0.5 mL, administered: 11/05/2016 3:30:00 AM Lidocaine-Epinephrine [Injection] Injection 2 %, administered: 11/05/2016 3:38:00 AM Toradol [IM] IM 60 mg, administered: 11/05/2016 3:54:00 AM The following Medications were prescribed to the patient: Keflex 500 mg: take 1 capsule orally every 8 hours for 10 days. No refill. Substitution is permissible.(Disp 30 caps) -- Trell Callejas Dr. Bactrim DS 800 mg / 160 mg: take 1 tablet orally every 12 hours for 10 days. No refill. Substitution is permissible.(Disp 20 tabs) -- Trell Callejas Dr. Cortisporin otic suspension: instill 1 drop into the affected ear as needed for earache every 6 hours until symptoms improve. Dispense one (1) bottle. No refills. Substitution is permissible. -- Trell Callejas Dr. Percocet 5 mg/325 mg: take 1 tablet orally every 6 hours as needed for pain. Dispense ten (10). No refill. Substitution is permissible. -- Trell Callejas Dr.
--- NOTE | 2016-11-07 06:12 | ED DISCHARGE INSTRUCTIONS ---
Patient: JIMBO GUSMAN General Instructions [facility] VisitID: [id number] [place] [address] 31y, F Registration Date/Time: 11/05/2016 Cellulitis (acute left buttocks). Single deep abscess with incision and drainage (acute left buttocks). Acute right otitis externa. INSTRUCTIONS (Wound needs to be rechecked in 24 - 48 hours). Warnings: GENERAL WARNINGS: Return or contact your physician immediately if your condition worsens or changes unexpectedly, if not improving as expected, or if other problems arise. Specifically return if pain, vomiting, bleeding, breathing difficulty or fever. Prescription Medications: Keflex 500 mg: take 1 capsule orally every 8 hours for 10 days. No refill. Substitution is permissible. (Disp 30 caps) Bactrim DS 800 mg / 160 mg: take 1 tablet orally every 12 hours for 10 days. No refill. Substitution is permissible. (Disp 20 tabs) Cortisporin otic suspension: instill 1 drop into the affected ear as needed for earache every 6 hours until symptoms improve. Dispense one (1) bottle. No refills. Substitution is permissible. Percocet 5 mg/325 mg: take 1 tablet orally every 6 hours as needed for pain. Dispense ten (10). No refill. Substitution is permissible. Follow-up: Return to the emergency department as needed. Follow up with your doctor in three days. Reason for referral: recheck today's concerns. Summary of care provided to patient via paper. Screening today revealed the patient's blood pressure to be in the normal range. The patient should follow up with a primary care provider for blood pressure management. Understanding of the discharge instructions verbalized by patient. ADDITIONAL INFORMATION Cellulitis You have an infection of the skin known as cellulitis. This usually starts with a scrape, cut, insect bite, blister or other opening in the skin which becomes infected. This is a serious condition. It must be watched closely to be sure the infection is not spreading. With antibiotic treatment, the size of the red area will gradually shrink in size until the skin returns to normal. This will take 7-10 days. The red area should never increase in size once the antibiotic medicine has been started. Occasionally, an infection will be resistant to one antibiotic and another one will have to be used. Home Care: 1) Limit the use of the affected part, since excess movement can cause the infection to spread. 2) If the infection is on your leg, walk as little as possible during the first few days of the treatment. Keep your leg elevated while sitting. This will reduce swelling. 3) Take all of the antibiotic medicine exactly as directed until it is gone. Be careful not to miss any doses, especially during the first seven days. Follow Up with your doctor or this facility as directed. Check the infected area daily for the warning signs listed below. Get Prompt Medical Attention if any of the following occur: -- Spreading area of redness -- Increasing swelling or pain -- Appearance of pus or drainage -- Fever over 100.4 F (38.0 C) oral, or over 101.4 F (38.6 C) rectal, after two days on antibiotics Staph Infection (MRSA) "Staph" is the short name for the common bacteria called "staphylococcus aureus". Staph bacteria are often present on the skin without causing an infection. If it gets under the skin an infection occurs. This causes redness, tenderness, swelling and sometimes fluid drainage. MRSA stands for "Methicillin-Resistant Staph Aureus". Unlike a common staph infection, MRSA bacteria are resistant to the usual antibiotics and harder to treat. Also, MRSA is more toxic than common staph bacteria. It can spread quickly throughout the body and cause a life-threatening illness. MRSA is spread to others by direct physical contact with the bacteria. MRSA can also be transmitted from items contaminated by a person who has the bacteria, such as bandages, towels, bed sheets, or sports equipment. It is not spread through the air. Once you have a MRSA skin infection, you are at risk of having it recur in the future. If MRSA infection is suspected, the doctor may take a wound culture to confirm the diagnosis. Any abscess will be drained. One or sometimes two antibiotics that work against MRSA will be prescribed. Home Care: 1) Take any antibiotics prescribed exactly as directed until they are gone. 2) Follow the same washing procedures as outlined for Household Members below. 3) Keep draining wounds covered with clean, dry bandages. Change dressings as they become soiled. 4) You and those in contact with you should wash their hands frequently with soap and warm water or use an alcohol-based hand grease refiner operator. Do this after each time you change the bandage or touch the wound. 5) Avoid sharing personal items such as towels, washcloths, razors, clothing, or uniforms. Wash soiled sheets, towels or clothes in hot water with laundry detergent. Use an automatic clothes dryer set on high to kill any remaining bacteria. 6) Remove any artificial nails and nail bermudian. 7) If you use a gym, wipe down equipment before and after each use. Treatment Of Household Members If you have been diagnosed with possible MRSA infection, those living with you are at higher risk of carrying the bacteria on their skin or in their nose, even if there is no sign of infection. Bacteria must be removed from the skin of all household members (including you) at the same time, so that it is not passed back and forth. Advise them to remove the bacteria as follows: Wash your whole body (scalp to toes) daily for five days with Hibiclens (chlorhexidine). Scrub fingernails with a brush for one minute twice a day. If any skin infections are present (boils, abscess, infected cut) these must be treated by a doctor. Washing alone will not treat a MRSA infection. Clean counter tops and children's toys; do not share personal items such as toothbrush and razors. It is okay to share glasses, plates, utensils. If antibiotic ointment was prescribed use it as directed. Follow Up with your doctor or as advised by our staff. If a wound culture was taken, call as directed in two days to obtain the results. If the culture result is positive for MRSA, tell medical personnel in the future that you were treated for this type of infection. Get Prompt Medical Attention if any of the following occur: -- Increasing redness, swelling or pain -- Red streaks in the skin around the wound -- Weakness or dizziness -- New appearance of pus or drainage from the wound -- New fever over 100.4 F (38.0 C) Abscess [Incision & Drainage] An abscess (sometimes called a boil) occurs when bacteria get trapped under the skin and begin to grow. Pus forms inside the abscess as the body responds to the bacteria. An abscess can occur with an insect bite, ingrown hair, blocked oil gland, pimple, cyst, or puncture wound. Treatment of your abscess has required an incision to drain the pus. If the abscess pocket was large, a gauze packing may have been inserted. This will need to be removed and possibly replaced on your next visit. Antibiotics are not required in the treatment of a simple abscess, unless the infection is spreading into the skin around the wound (known as cellulitis). Healing of the wound will take about one to two weeks depending on the size of the abscess. Healthy tissue will grow from the bottom and sides of the opening until it seals over. Home Care: The wound may drain for the first two days. Cover the wound with a clean dry dressing. If the dressing becomes soaked with blood or pus, change it. If a gauze packing was placed inside the abscess cavity, you may be advised to remove it yourself. You may do this in the shower. Once the packing is removed, you should wash the area in the shower or bath 3 to 4 times a day, until the skin opening has closed. If you were prescribed antibiotics, take them as directed until they are all gone. You may use acetaminophen (Tylenol) or ibuprofen (Motrin, Advil) to control pain, unless another pain medicine was prescribed. [ NOTE: If you have liver disease or ever had a stomach ulcer, talk with your doctor before using these medicines.] Follow Up with your doctor as advised by our staff. If a gauze packing was inserted in your wound, it should be removed in 1-2 days. Check your wound every day for the signs of worsening infection listed below. Get Prompt Medical Attention if any of the following occur: Increasing redness or swelling Red streaks in the skin leading away from the wound Increasing local pain or swelling Continued pus draining from the wound two days after treatment Fever of 100.4F (38C) or higher, or as directed by your healthcare provider External Ear Infection [Adult] This is an infection in the ear canal due to an overgrowth of bacteria or fungus. This often occurs a few days after water gets trapped in the ear canal (swimming or bathing). It may also occur after cleaning too deeply in the ear canal with a cotton swab or other object. Sometimes hair care products get into the ear canal and cause this problem. There may be itching, redness, drainage, or swelling of the ear canal and temporary loss of hearing. Home Care: Do not try to clean the ear canal. That could push pus and bacteria deeper into the canal. Use the drops prescribed to reduce swelling and fight the infection. If an EAR WICK was placed in the ear canal, apply drops right onto the end of the wick. The wick will draw the medicine into the ear canal even if it is swollen closed. Do not allow water to get into your ear when bathing. No swimming during this time. A cotton ball may be loosely placed in the outer ear to absorb any drainage. You may use acetaminophen (Tylenol) or ibuprofen (Motrin, Advil) to control pain, unless another medicine was prescribed. [NOTE: If you have chronic liver or kidney disease or ever had a stomach ulcer or GI bleeding, talk with your doctor before using these medicines.] Preventing Future Infections: You can usually avoid this problem by using an eardrop that removes the water from your ear canal when you feel there is water trapped there. You can get these drops over the counter (Swim Ear, Aqua Ear and other brands). Follow Up with your doctor or this facility in one week or as instructed by our staff. Get Prompt Medical Attention if any of the following occur: Ear pain becomes worse or does not begin to improve after 3 days of treatment Redness or swelling of the outer ear occurs or gets worse Headache, painful or stiff neck, Feeling drowsy or confused Fever of 100.4F (38C) or higher, or as directed by your healthcare provider Seizure Cephalexin Monohydrate Oral tablet What is this medicine? CEPHALEXIN (sef a MARIZA in) is a cephalosporin antibiotic. It is used to treat certain kinds of bacterial infections It will not work for colds, flu, or other viral infections. How should I use this medicine? Take this medicine by mouth with a full glass of water. Follow the directions on the prescription label. This medicine can be taken with or without food. Take your medicine at regular intervals. Do not take your medicine more often than directed. Take all of your medicine as directed even if you think you are better. Do not skip doses or stop your medicine early. Talk to your simonizer regarding the use of this medicine in children. While this drug may be prescribed for selected conditions, precautions do apply. What side effects may I notice from receiving this medicine? Side effects that you should report to your doctor or health intensive care unit nurse as soon as possible: allergic reactions like skin rash, itching or hives, swelling of the face, lips, or tongue breathing problems pain or trouble passing urine redness, blistering, peeling or loosening of the skin, including inside the mouth severe or watery diarrhea unusually weak or tired yellowing of the eyes, skin Side effects that usually do not require medical attention (report to your doctor or health intensive care unit nurse if they continue or are bothersome): gas or heartburn genital or anal irritation headache joint or muscle pain nausea, vomiting What may interact with this medicine? probenecid some other antibiotics What if I miss a dose? If you miss a dose, take it as soon as you can. If it is almost time for your next dose, take only that dose. Do not take double or extra doses. There should be at least 4 to 6 hours between doses. Where should I keep my medicine? Keep out of the reach of children. Store at room temperature between 59 and 86 degrees F (15 and 30 degrees C). Throw away any unused medicine after the expiration date. What should I tell my health care provider before I take this medicine? They need to know if you have any of these conditions: kidney disease stomach or intestine problems, especially colitis an unusual or allergic reaction to cephalexin, other cephalosporins, penicillins, other antibiotics, medicines, foods, dyes or preservatives or trying to get breast-feeding What should I watch for while using this medicine? Tell your doctor or health intensive care unit nurse if your symptoms do not begin to improve in a few days. Do not treat diarrhea with over the counter products. Contact your doctor if you have diarrhea that lasts more than 2 days or if it is severe and watery. If you have diabetes, you may get a false-positive result for sugar in your urine. Check with your doctor or health intensive care unit nurse. Sulfamethoxazole, Trimethoprim Oral tablet What is this medicine? SULFAMETHOXAZOLE; TRIMETHOPRIM or SMX-TMP (suhl fuh meth OK pool zohl; trye METH oh prim) is a combination of a sulfonamide antibiotic and a second antibiotic, trimethoprim. It is used to treat or prevent certain kinds of bacterial infections. It will not work for colds, flu, or other viral infections. How should I use this medicine? Take this medicine by mouth with a full glass of water. Follow the directions on the prescription label. Take your medicine at regular intervals. Do not take it more often than directed. Do not skip doses or stop your medicine early. Talk to your simonizer regarding the use of this medicine in children. Special care may be needed. This medicine has been used in children as young as 2 months of age. What side effects may I notice from receiving this medicine? Side effects that you should report to your doctor or health intensive care unit nurse as soon as possible: allergic reactions like skin rash or hives, swelling of the face, lips, or tongue breathing problems fever or chills, sore throat irregular heartbeat, chest pain joint or muscle pain pain or difficulty passing urine red pinpoint spots on skin redness, blistering, peeling or loosening of the skin, including inside the mouth unusual bleeding or bruising unusually weak or tired yellowing of the eyes or skin Side effects that usually do not require medical attention (report to your doctor or health intensive care unit nurse if they continue or are bothersome): diarrhea dizziness headache loss of appetite nausea, vomiting nervousness What may interact with this medicine? Do not take this medicine with any of the following medications: aminobenzoate potassium dofetilide metronidazole This medicine may also interact with the following medications: CANDY inhibitors like benazepril, enalapril, lisinopril, and ramipril cyclosporine digoxin diuretics indomethacin medicines for diabetes methenamine methotrexate phenytoin potassium supplements pyrimethamine sulfinpyrazone tricyclic antidepressants warfarin What if I miss a dose? If you miss a dose, take it as soon as you can. If it is almost time for your next dose, take only that dose. Do not take double or extra doses. Where should I keep my medicine? Keep out of the reach of children. Store at room temperature between 20 to 25 degrees C (68 to 77 degrees F). Protect from light. Throw away any unused medicine after the expiration date. What should I tell my health care provider before I take this medicine? They need to know if you have any of these conditions: anemia asthma being treated with anticonvulsants if you frequently drink alcohol containing drinks kidney disease liver disease low level of folic acid or [id number] dehydrogenase poor nutrition or malabsorption porphyria severe allergies thyroid disorder an unusual or allergic reaction to sulfamethoxazole, trimethoprim, sulfa drugs, other medicines, foods, dyes, or preservatives or trying to get breast-feeding What should I watch for while using this medicine? Tell your doctor or health intensive care unit nurse if your symptoms do not improve. Drink several glasses of water a day to reduce the risk of kidney problems. Do not treat diarrhea with over the counter products. Contact your doctor if you have diarrhea that lasts more than 2 days or if it is severe and watery. This medicine can make you more sensitive to the sun. Keep out of the sun. If you cannot avoid being in the sun, wear protective clothing and use a sunscreen. Do not use sun lamps or tanning beds/booths. Oxycodone Hydrochloride, Acetaminophen Oral tablet What is this medicine? ACETAMINOPHEN; OXYCODONE (a set a KEKE teresa fen; ox i KOE done) is a pain reliever. It is used to treat mild to moderate pain. How should I use this medicine? Take this medicine by mouth with a full glass of water. Follow the directions on the prescription label. Take your medicine at regular intervals. Do not take your medicine more often than directed. Talk to your simonizer regarding the use of this medicine in children. Special care may be needed. Patients over 65 years old may have a stronger reaction and need a smaller dose. What side effects may I notice from receiving this medicine? Side effects that you should report to your doctor or health intensive care unit nurse as soon as possible: allergic reactions like skin rash, itching or hives, swelling of the face, lips, or tongue breathing difficulties, wheezing confusion light headedness or fainting spells severe stomach pain yellowing of the skin or the whites of the eyes Side effects that usually do not require medical attention (report to your doctor or health intensive care unit nurse if they continue or are bothersome): dizziness drowsiness nausea vomiting What may interact with this medicine? alcohol antihistamines barbiturates like amobarbital, butalbital, butabarbital, methohexital, pentobarbital, phenobarbital, thiopental, and secobarbital benztropine drugs for bladder problems like solifenacin, trospium, oxybutynin, tolterodine, hyoscyamine, and methscopolamine drugs for breathing problems like ipratropium and tiotropium drugs for certain stomach or intestine problems like propantheline, homatropine methylbromide, glycopyrrolate, atropine, belladonna, and dicyclomine general anesthetics like etomidate, ketamine, nitrous oxide, propofol, desflurane, enflurane, halothane, isoflurane, and sevoflurane medicines for depression, anxiety, or psychotic disturbances medicines for sleep muscle relaxants naltrexone narcotic medicines (opiates) for pain phenothiazines like perphenazine, thioridazine, chlorpromazine, mesoridazine, fluphenazine, prochlorperazine, promazine, and trifluoperazine scopolamine tramadol trihexyphenidyl What if I miss a dose? If you miss a dose, take it as soon as you can. If it is almost time for your next dose, take only that dose. Do not take double or extra doses. Where should I keep my medicine? Keep out of the reach of children. This medicine can be abused. Keep your medicine in a safe place to protect it from theft. Do not share this medicine with anyone. Selling or giving away this medicine is dangerous and against the law. Store at room temperature between 20 and 25 degrees C (68 and 77 degrees F). Keep container tightly closed. Protect from light. This medicine may cause accidental overdose and if it is taken by other adults, children, or pets. Flush any unused medicine down the toilet to reduce the chance of harm. Do not use the medicine after the expiration date. What should I tell my health care provider before I take this medicine? They need to know if you have any of these conditions: brain tumor Crohn's disease, inflammatory bowel disease, or ulcerative colitis drink more than 3 alcohol containing drinks per day drug abuse or addiction head injury heart or circulation problems kidney disease or problems going to the bathroom liver disease lung disease, asthma, or breathing problems an unusual or allergic reaction to acetaminophen, oxycodone, other opioid analgesics, other medicines, foods, dyes, or preservatives or trying to get breast-feeding What should I watch for while using this medicine? Tell your doctor or health intensive care unit nurse if your pain does not go away, if it gets worse, or if you have new or a different type of pain. You may develop tolerance to the medicine. Tolerance means that you will need a higher dose of the medication for pain relief. Tolerance is normal and is expected if you take this medicine for a long time. Do not suddenly stop taking your medicine because you may develop a severe reaction. Your body becomes used to the medicine. This does NOT mean you are addicted. Addiction is a behavior related to getting and using a drug for a non-medical reason. If you have pain, you have a medical reason to take pain medicine. Your doctor will tell you how much medicine to take. If your doctor wants you to stop the medicine, the dose will be slowly lowered over time to avoid any side effects. You may get drowsy or dizzy. Do not drive, use machinery, or do anything that needs mental alertness until you know how this medicine affects you. Do not stand or sit up quickly, especially if you are an older patient. This reduces the risk of dizzy or fainting spells. Alcohol may interfere with the effect of this medicine. Avoid alcoholic drinks. There are different types of narcotic medicines (opiates) for pain. If you take more than one type at the same time, you may have more side effects. Give your health care provider a list of all medicines you use. Your doctor will tell you how much medicine to take. Do not take more medicine than directed. Call emergency for help if you have problems breathing. The medicine will cause constipation. Try to have a bowel movement at least every 2 to 3 days. If you do not have a bowel movement for 3 days, call your doctor or health intensive care unit nurse. Do not take Tylenol (acetaminophen) or medicines that have acetaminophen with this medicine. Too much acetaminophen can be very dangerous. Many nonprescription medicines contain acetaminophen. Always read the labels carefully to avoid taking more acetaminophen. You have been given the following additional information: Cellulitis MRSA Skin Infection, Suspected Or Confirmed Abscess, Incision And Drainage External Ear Infection (Adult) Cephalexin Monohydrate Oral tablet Sulfamethoxazole, Trimethoprim Oral tablet Oxycodone Hydrochloride, Acetaminophen Oral tablet (Electronically signed by Trell Callejas Dr. 11/07/2016 6:12)
--- NOTE | 2016-11-07 06:12 | ED MAR SUMMARY ---
..... Medication Administration Record [facility] [address] [place] [address] Patient: JIMBO GUSMAN Visit ID: [id number] 31y, F Weight: 90.7 kg Height/Length: 65 in BMI: 33.3 ALLERGIES: Atropine Given 03:30 11/05/2016 Emerald Burton R.N. Medication Administered: [id number] PERTUSSIS [IM], Dose: 0.5 mL IM. Medication Ordered: Dimjlbi-Xrnhlg-Vwzoj Pertussis IM 0.5 mL (NOW, per protocol). Given 03:38 11/05/2016 Emerald Burton R.N. Medication Administered: LIDOCAINE-EPINEPHRINE [INJECTION] (LIDOCAINE-EPINEPHRINE), Dose: 2 % Injectable Injection. Medication Ordered: Lidocaine-Epinephrine Injection 1% (place at bedside, with syringes & needles). Given 03:54 11/05/2016 Emerald Burton R.N. Medication Administered: TORADOL [IM] (KETOROLAC TROMETHAMINE), Dose: 60 mg IM. Medication Ordered: Toradol IM 60 mg (NOW).
== END 2016-11-05 04:43 | disposition home or self-care (01) ==
LOC: ED SRH 00:33
DX: L03.317 Cellulitis of buttock (principal); L02.31 Cutaneous abscess of buttock; H60.91 Unspecified otitis externa, right ear

== ENCOUNTER 2017-02-14 00:28 | Emergency (ER) | payer OTHER ==
--- NOTE | 2017-02-14 01:10 | ED NURSING NOTES ---
Clinical Report - Nurses [facility] [address] [place] [address] 02/14/2017 0:27 Patient: JIMBO GUSMAN TRIAGE Triage time 00:46. Acuity: LEVEL 5. Chief Complaint: SKIN LESION. --00:54 Davide Norton R.N. 00:44 02/14/17. BP: 118/85. HR: 76. RR: 16. O2 saturation: 100%. Temp: 98.7 F. Pain level now: 10/21. --00:54 Davide Norton R.N. Weight: 99.7 kg stated. Height/Length: 65 inches Per Patient. BMI: 36.6. --00:53 Davide Norton R.N. Medications [place] Oral 300 mg , daily. --00:51 Davide Norton R.N. Suboxone Sublingual 8mg , 2 x daily. ZyPREXA Oral 5 mg, daily. --00:51 Davide Norton R.N. Medication/allergy information source: the patient. --00:54 Davide Norton R.N. Allergies Atropine. (Reaction as baby) --00:51 Davide Norton R.N. History Arrived by private vehicle. Historian: patient. ( Skin sores all over her body which patient states has been going on and off since teenager. Patient pops them when she feels anxious or depressed. Not itchy but stings when she scratches them.). Reported as generalized in location. Onset. (15 years ago). It is described as mildly burning. 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 PAST MEDICAL HX: Immunizations: up-to-date. SOCIAL HX: Heavy tobacco smoker (cigarette)- 1 pack per day. Occasional alcohol use. History of drug use: marijuana. (tonight). --00:54 Davide Norton R.N. PROBLEMS: Otitis Externa. MRSA Infection. Substance Abuse. Lifestyle / Substance Problems. Abscess. Cellulitis. Immunizations. --00:51 Davide Norton R.N. Interventions ID band on patient. To room. --00:54 Davide Norton R.N. PHYSICAL ASSESSMENT Ambulatory to room. GENERAL / NEURO / PSYCH: Alert. The patient does not appear to be in acute distress. Oriented X 4. HEENT: Mucous membranes are pink. RESPIRATORY: Respirations not labored. Breath sounds within normal limits. CVS: Capillary refill less than 2 seconds. Pulses within normal limits. GI / : Abdomen nontender. SKIN: Skin is warm and dry. Generalized crusting skin rash present. --00:56 Davide Norton R.N. NURSING PROGRESS NOTES Head of bed elevated. Patient identifiers checked. Call light placed in reach. Side rails up x 1. Bed placed in lowest position. Brakes of bed on. Patient ready for evaluation- ED physician notified. --00:57 Davide Norton R.N. DISPOSITION / DISCHARGE Condition at departure: stable. No learning barriers present. Discharge instructions provided and reviewed with the patient. Reviewed medication(s) side effects, precautions, dosing and course information. Prescription(s) given to the patient. Patient verbalized understanding. Written instructions provided in Hungarian. The patient was discharged home. She left the Emergency Department ambulatory and via private vehicle. Patient driving. --01:19 Davide Norton R.N. 01:18 02/14/17. BP: 120/85. HR: 74. RR: 16. O2 saturation: 99%. Temp: deferred. Pain level now: 10/21. --01:19 Davide Norton R.N. Departure time: :19. --01:20 Davide Norton R.N. Locked/Released at 02/14/2017 1:20 by Davide Norton R.N.
--- NOTE | 2017-02-14 01:10 | ED CLINICAL REPORT ---
Clinical Report - Physicians/Mid Levels [facility] [address] [place] [address] 02/14/2017 0:27 [id number] Time Seen: 00:47 Feb 14 2017. Arrived- By private vehicle. Historian- patient. CPT: ER phys charges level 3 (#198519). HISTORY OF PRESENT ILLNESS Chief Complaint: SKIN RASH. This started years; Arrived by private vehicle. Historian: patient. ( Skin sores all over her body which patient states has been going on and off since teenager. Patient pops them when she feels anxious or depressed. Not itchy but stings when she scratches them.). Reported as generalized in location. Onset. (15 years ago). It is described as mildly burning. and is still present and worsening. (worse last several days,.). It has been generalized in location. 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 No recent medication or insect bite. (Had a recent break-up and is stressed, anxious and going through grief.). Similar symptoms previously: Several times. Recent medical care: Not recently seen/assessed. REVIEW OF SYSTEMS No fever, chills, sore throat, cough or difficulty breathing. No hoarseness, lump in throat, enlarged lymph nodes, abdominal pain or nausea. No diarrhea, difficulty with urination or joint pain. All systems otherwise negative, except as recorded above. PAST HISTORY Bipolar. Medications: Suboxone Sublingual 8mg , 2 x daily. ZyPREXA Oral 5 mg, daily. [place] Oral 300 mg , daily. Allergies: Atropine. (Reaction as baby). SOCIAL HISTORY Heavy tobacco smoker (cigarette)- less than 1 pack per day. Alcohol use. History of drug use: marijuana. ADDITIONAL NOTES The nursing notes have been reviewed. PHYSICAL EXAM Vital Signs: 02/14/2017 00:44 BP: 118/85. HR: 76. RR: 16. O2 saturation: 100%. Temp: 98.7 F. Pain level now: 3/10. Appearance: Alert. Eyes: Conjunctivae and eyelids normal. ENT: Pharynx normal. Neck: Neck supple. CVS: Normal heart rate and rhythm. Heart sounds normal. Respiratory: No respiratory distress. Abdomen: Nontender. Skin: No cellulitis. The rash is generalized (multiple excoriated erosions). No abscess. Extremities: Extremities nontender. Neuro: Oriented X 3. PROGRESS AND PROCEDURES Patient/family counseled. Disposition: Discharged. Condition: stable. CLINICAL IMPRESSION Neurogenic picking with secondary infection Greif reaction related to relationship break-up. INSTRUCTIONS Warnings: Further evaluation is necessary. Your Current Medications: CONTINUE TAKING THE FOLLOWING MEDICATIONS: [place] Oral : 300 mg daily. Suboxone Sublingual : 8mg 2 x daily. ZyPREXA Oral : 5 mg daily. Prescription Medications: Bactrim DS 800 mg / 160 mg: Take 1 tablet orally every 12 hours for 7 days. Dispense fourteen (14). No refills. Substitution is permissible. Cleocin topical : Apply to affected areas, after washing, qid # 1 bottle. Follow-up: Follow up with your doctor in one week. Call for an appointment. Understanding of the discharge instructions verbalized by patient. (Electronically signed by Mikhail Rodriges MD 02/26/2017 22:50)
--- NOTE | 2017-02-14 01:10 | ED NURSING NOTES ---
Clinical Report - Nurses [facility] [address] [place] [address] 02/14/2017 0:27 Patient: JIMBO GUSMAN TRIAGE Triage time 00:46. Acuity: LEVEL 5. Chief Complaint: SKIN LESION. --00:54 Davide Norton R.N. 00:44 02/14/17. BP: 118/85. HR: 76. RR: 16. O2 saturation: 100%. Temp: 98.7 F. Pain level now: 10/21. --00:54 Davide Norton R.N. Weight: 99.7 kg stated. Height/Length: 65 inches Per Patient. BMI: 36.6. --00:53 Davide Norton R.N. Medications [place] Oral 300 mg , daily. --00:51 Davide Norton R.N. Suboxone Sublingual 8mg , 2 x daily. ZyPREXA Oral 5 mg, daily. --00:51 Davide Norton R.N. Medication/allergy information source: the patient. --00:54 Davide Norton R.N. Allergies Atropine. (Reaction as baby) --00:51 Davide Norton R.N. History Arrived by private vehicle. Historian: patient. ( Skin sores all over her body which patient states has been going on and off since teenager. Patient pops them when she feels anxious or depressed. Not itchy but stings when she scratches them.). Reported as generalized in location. Onset. (15 years ago). It is described as mildly burning. 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 PAST MEDICAL HX: Immunizations: up-to-date. SOCIAL HX: Heavy tobacco smoker (cigarette)- 1 pack per day. Occasional alcohol use. History of drug use: marijuana. (tonight). --00:54 Davide Norton R.N. PROBLEMS: Otitis Externa. MRSA Infection. Substance Abuse. Lifestyle / Substance Problems. Abscess. Cellulitis. Immunizations. --00:51 Davide Norton R.N. Interventions ID band on patient. To room. --00:54 Davide Norton R.N. PHYSICAL ASSESSMENT Ambulatory to room. GENERAL / NEURO / PSYCH: Alert. The patient does not appear to be in acute distress. Oriented X 4. HEENT: Mucous membranes are pink. RESPIRATORY: Respirations not labored. Breath sounds within normal limits. CVS: Capillary refill less than 2 seconds. Pulses within normal limits. GI / : Abdomen nontender. SKIN: Skin is warm and dry. Generalized crusting skin rash present. --00:56 Davide Norton R.N. NURSING PROGRESS NOTES Head of bed elevated. Patient identifiers checked. Call light placed in reach. Side rails up x 1. Bed placed in lowest position. Brakes of bed on. Patient ready for evaluation- ED physician notified. --00:57 Davide Norton R.N. DISPOSITION / DISCHARGE Condition at departure: stable. No learning barriers present. Discharge instructions provided and reviewed with the patient. Reviewed medication(s) side effects, precautions, dosing and course information. Prescription(s) given to the patient. Patient verbalized understanding. Written instructions provided in Mongolian. The patient was discharged home. She left the Emergency Department ambulatory and via private vehicle. Patient driving. --01:19 Davide Norton R.N. 01:18 02/14/17. BP: 120/85. HR: 74. RR: 16. O2 saturation: 99%. Temp: deferred. Pain level now: 10/21. --01:19 Davide Norton R.N. Departure time: :19. --01:20 Davide Norton R.N. Locked/Released at 02/14/2017 1:20 by Davide Norton R.N.
--- NOTE | 2017-02-14 01:10 | ED CLINICAL REPORT ---
Clinical Report - Physicians/Mid Levels [facility] [address] [place] [address] 02/14/2017 0:27 [id number] Time Seen: 00:47 Feb 14 2017. Arrived- By private vehicle. Historian- patient. CPT: ER phys charges level 3 (#856122). HISTORY OF PRESENT ILLNESS Chief Complaint: SKIN RASH. This started years; Arrived by private vehicle. Historian: patient. ( Skin sores all over her body which patient states has been going on and off since teenager. Patient pops them when she feels anxious or depressed. Not itchy but stings when she scratches them.). Reported as generalized in location. Onset. (15 years ago). It is described as mildly burning. and is still present and worsening. (worse last several days,.). It has been generalized in location. 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 No recent medication or insect bite. (Had a recent break-up and is stressed, anxious and going through grief.). Similar symptoms previously: Several times. Recent medical care: Not recently seen/assessed. REVIEW OF SYSTEMS No fever, chills, sore throat, cough or difficulty breathing. No hoarseness, lump in throat, enlarged lymph nodes, abdominal pain or nausea. No diarrhea, difficulty with urination or joint pain. All systems otherwise negative, except as recorded above. PAST HISTORY Bipolar. Medications: Suboxone Sublingual 8mg , 2 x daily. ZyPREXA Oral 5 mg, daily. [place] Oral 300 mg , daily. Allergies: Atropine. (Reaction as baby). SOCIAL HISTORY Heavy tobacco smoker (cigarette)- less than 1 pack per day. Alcohol use. History of drug use: marijuana. ADDITIONAL NOTES The nursing notes have been reviewed. PHYSICAL EXAM Vital Signs: 02/14/2017 00:44 BP: 118/85. HR: 76. RR: 16. O2 saturation: 100%. Temp: 98.7 F. Pain level now: 3/10. Appearance: Alert. Eyes: Conjunctivae and eyelids normal. ENT: Pharynx normal. Neck: Neck supple. CVS: Normal heart rate and rhythm. Heart sounds normal. Respiratory: No respiratory distress. Abdomen: Nontender. Skin: No cellulitis. The rash is generalized (multiple excoriated erosions). No abscess. Extremities: Extremities nontender. Neuro: Oriented X 3. PROGRESS AND PROCEDURES Patient/family counseled. Disposition: Discharged. Condition: stable. CLINICAL IMPRESSION Neurogenic picking with secondary infection Greif reaction related to relationship break-up. INSTRUCTIONS Warnings: Further evaluation is necessary. Your Current Medications: CONTINUE TAKING THE FOLLOWING MEDICATIONS: [place] Oral : 300 mg daily. Suboxone Sublingual : 8mg 2 x daily. ZyPREXA Oral : 5 mg daily. Prescription Medications: Bactrim DS 800 mg / 160 mg: Take 1 tablet orally every 12 hours for 7 days. Dispense fourteen (14). No refills. Substitution is permissible. Cleocin topical : Apply to affected areas, after washing, qid # 1 bottle. Follow-up: Follow up with your doctor in one week. Call for an appointment. Understanding of the discharge instructions verbalized by patient. (Electronically signed by Mikhail Rodriges MD 02/26/2017 22:50)
--- NOTE | 2017-02-26 22:50 | ED MAR SUMMARY ---
..... Medication Administration Record [facility] [address] [place], [place] [id number] Patient: JIMBO GUSMAN Visit ID: [id number] 31y, F Weight: 99.7 kg Height/Length: 65 in BMI: 36.6 ALLERGIES: Atropine
--- NOTE | 2017-02-26 22:50 | ED MAR SUMMARY ---
..... Medication Administration Record [facility] [address] [place], [place] [id number] Patient: JIMBO GUSMAN Visit ID: [id number] 31y, F Weight: 99.7 kg Height/Length: 65 in BMI: 36.6 ALLERGIES: Atropine
--- NOTE | 2017-02-26 22:50 | ED DISCHARGE INSTRUCTIONS ---
Patient: JIMBO GUSMAN General Instructions [facility] VisitID: [id number] [address] [place] [address] 31y, F Registration Date/Time: 02/14/2017 Neurogenic picking with secondary infection Greif reaction related to relationship break-up. INSTRUCTIONS Warnings: Further evaluation is necessary. Your Current Medications: CONTINUE TAKING THE FOLLOWING MEDICATIONS: [place] Oral : 300 mg daily. Suboxone Sublingual : 8mg 2 x daily. ZyPREXA Oral : 5 mg daily. Prescription Medications: Bactrim DS 800 mg / 160 mg: Take 1 tablet orally every 12 hours for 7 days. Dispense fourteen (14). No refills. Substitution is permissible. Cleocin topical : Apply to affected areas, after washing, qid # 1 bottle. Follow-up: Follow up with your doctor in one week. Call for an appointment. Understanding of the discharge instructions verbalized by patient. (Electronically signed by Mikhail Rodriges MD 02/26/2017 22:50)
--- NOTE | 2017-02-26 22:50 | ED MED RECONCILIATION SUMMARY ---
Patient: JIMBO GUSMAN Medication Reconciliation Report [facility] VisitID: [id number] [address] [place] [address] 31y, F Registration Date/Time: 02/14/2017 Weight: 99.7 kg Height/Length: 65 in. BMI: 36.6 ALLERGIES: Atropine The patient's Home Medications are listed below: CONTINUE TAKING THE FOLLOWING MEDICATIONS: [place] Oral 300 mg , daily Suboxone Sublingual 8mg , 2 x daily ZyPREXA Oral 5 mg, daily The source(s) of the original Home Medication information: patient The following Medications were given to the patient in the Emergency Department: None. The following Medications were prescribed to the patient: Cleocin topical : Apply to affected areas, after washing, qid # 1 bottle. -- Mikhail Rodriges MD Bactrim DS 800 mg / 160 mg: Take 1 tablet orally every 12 hours for 7 days. Dispense fourteen (14). No refills. Substitution is permissible. -- Mikhail Rodriges MD
--- NOTE | 2017-02-26 22:50 | ED MED RECONCILIATION SUMMARY ---
Patient: JIMBO GUSMAN Medication Reconciliation Report VisitID: [id number] [address] [place] [address] 31y, F Registration Date/Time: 02/14/2017 Weight: 99.7 kg Height/Length: 65 in. BMI: 36.6 ALLERGIES: Atropine The patient's Home Medications are listed below: CONTINUE TAKING THE FOLLOWING MEDICATIONS: [place] Oral 300 mg , daily Suboxone Sublingual 8mg , 2 x daily ZyPREXA Oral 5 mg, daily The source(s) of the original Home Medication information: patient The following Medications were given to the patient in the Emergency Department: None. The following Medications were prescribed to the patient: Cleocin topical : Apply to affected areas, after washing, qid # 1 bottle. -- Mikhail Rodriges MD Bactrim DS 800 mg / 160 mg: Take 1 tablet orally every 12 hours for 7 days. Dispense fourteen (14). No refills. Substitution is permissible. -- Mikhail Rodriges MD
--- NOTE | 2017-02-26 22:50 | ED DISCHARGE INSTRUCTIONS ---
Patient: JIMBO GUSMAN General Instructions [facility] VisitID: [id number] [address] [place] [address] 31y, F Registration Date/Time: 02/14/2017 Neurogenic picking with secondary infection Greif reaction related to relationship break-up. INSTRUCTIONS Warnings: Further evaluation is necessary. Your Current Medications: CONTINUE TAKING THE FOLLOWING MEDICATIONS: [place] Oral : 300 mg daily. Suboxone Sublingual : 8mg 2 x daily. ZyPREXA Oral : 5 mg daily. Prescription Medications: Bactrim DS 800 mg / 160 mg: Take 1 tablet orally every 12 hours for 7 days. Dispense fourteen (14). No refills. Substitution is permissible. Cleocin topical : Apply to affected areas, after washing, qid # 1 bottle. Follow-up: Follow up with your doctor in one week. Call for an appointment. Understanding of the discharge instructions verbalized by patient. (Electronically signed by Mikhail Rodriges MD 02/26/2017 22:50)
== END 2017-02-14 01:20 | disposition home or self-care (01) ==
LOC: ED SRH 00:28
DX: L08.9 Local infection of the skin and subcutaneous tissue, unspecified (principal); F43.20 Adjustment disorder, unspecified; F17.210 Nicotine dependence, cigarettes, uncomplicated; F12.10 Cannabis abuse, uncomplicated; Z79.899 Other long term (current) drug therapy

== ENCOUNTER 2017-03-04 05:42 | Emergency (ER) | payer OTHER ==
--- NOTE | 2017-03-04 05:54 | ED NURSING NOTES ---
Clinical Report - Nurses [facility] [address] [place] [address] 03/04/2017 5:42 Patient: JIMBO GUSMAN TRIAGE Triage time 05:47. Acuity: LEVEL 5. Chief Complaint: SKIN RASH and SKIN LESION. --05:57 Davide Norton R.N. 05:47 03/04/17. BP: 143/81. HR: 98. RR: 16. O2 saturation: 95%. Temp: 98 F. --05:57 Davide Norton R.N. Weight: 90.7 kg stated. Height/Length: 65 inches Per Patient. BMI: 33.3. --05:55 Davide Norton R.N. Medications [place] Oral 300 mg , daily. Suboxone Sublingual 8mg , 2 x daily. ZyPREXA Oral 5 mg, daily. --05:48 Davide Norton R.N. Allergies Atropine. (Reaction as baby) --05:48 Davide Norton R.N. Medication/allergy information source: the patient. --05:57 Davide Norton R.N. History ( rash/lesion under her breasts, groin, abdomen, face and buttocks and face. Seen here for same 3 weeks ago.). Reported as generalized in location. Onset. (3 weeks ago). 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 SOCIAL HX: Heavy tobacco smoker (cigarette)- 1 pack per day. Occasional alcohol use. History of drug use: marijuana. (1 weeks ago). --05:57 Davide Norton R.N. PROBLEMS: Otitis Externa. MRSA Infection. LNMP - Last Normal Menstrual Period. Substance Abuse. Lifestyle / Substance Problems. Tetanus Status. Abscess Check. Abscess. Cellulitis. Immunizations. --05:48 Davide Norton R.N. Interventions ID band on patient. To room. --05:57 Davide Norton R.N. PHYSICAL ASSESSMENT Ambulatory to room. GENERAL / NEURO / PSYCH: Alert. The patient does not appear to be in acute distress. Oriented X 4. RESPIRATORY: Respirations not labored. Breath sounds within normal limits. CVS: Capillary refill less than 2 seconds. SKIN: Skin is warm and dry. Multiple skin lesions on the face, neck, right and left breast, abdomen, back, waist area and perineum. --05:58 Davide Norton R.N. NURSING PROGRESS NOTES Patient identifiers checked. Call light placed in reach. Side rails up x 1. Bed placed in lowest position. Brakes of bed on. Patient ready for evaluation- chart flagged and ED physician notified. --05:58 Davide Norton R.N. DISPOSITION / DISCHARGE Condition at departure: stable. No learning barriers present. Discharge instructions provided and reviewed with the patient. Reviewed medication(s) side effects, precautions, dosing and course information. Prescription(s) given to the patient. Reviewed referral to a primary care physician for followup. Patient verbalized understanding. Written instructions provided in [place]uran. The patient was discharged home. She left the Emergency Department ambulatory and via private vehicle. Patient driving. --06:02 Davide Norton R.N. 06:01 03/04/17. BP: 138/79. HR: 97. RR: 16. O2 saturation: 95%. --06:02 Davide Norton R.N. Departure time: 06:02. --06:02 Davide Norton R.N. Locked/Released at 03/04/2017 6:05 by Davide Norton R.N.
--- NOTE | 2017-03-04 05:54 | ED CLINICAL REPORT ---
Clinical Report - Physicians/Mid Levels [facility] [address] [place] [address] 03/04/2017 5:42 Patient: JIMBO GUSMAN Time Seen: 05:49; initial patient contact. Arrived- By private vehicle. Historian- patient. HISTORY OF PRESENT ILLNESS Chief Complaint: SKIN RASH. This started about 1 week ago and is still present. It was gradual in onset. It is described as itchy and painful. Not burning. It has been located on the trunk. No cause has been identified. No recent medication, insect bite or food exposure. Was not recently exposed to poison jose. Similar symptoms previously: Many times. Recent medical care: Not recently seen/assessed. REVIEW OF SYSTEMS No fever, chills or enlarged lymph nodes. All systems otherwise negative, except as recorded above. PAST HISTORY Otitis Externa. MRSA Infection. LNMP - Last Normal Menstrual Period. Substance Abuse. Lifestyle / Substance Problems. Tetanus Status. Abscess Check. Abscess. Cellulitis. Medications: [place] Oral 300 mg , daily. Suboxone Sublingual 8mg , 2 x daily. ZyPREXA Oral 5 mg, daily. Allergies: Atropine. (Reaction as baby). SOCIAL HISTORY Current every day smoker. History of drug use: marijuana. ADDITIONAL NOTES The nursing notes have been reviewed. PHYSICAL EXAM Vital Signs: 03/04/2017 05:47 BP: 143/81. HR: 98. RR: 16. O2 saturation: 95%. Temp: 98 F. Have been reviewed. Hypertensive. Heart rate normal. Respiratory rate normal. Temperature normal. Oxygen saturation normal. Appearance: Alert. Oriented X3. No acute distress. Skin: Rash present on the trunk. There is weeping. Neuro: Oriented X 3. No motor deficit. PROGRESS AND PROCEDURES Disposition: Discharged home in good and improved condition. Condition: good. CLINICAL IMPRESSION Nonbullous impetigo Mild dermal candidiasis INSTRUCTIONS Your Current Medications: CONTINUE TAKING THE FOLLOWING MEDICATIONS: [place] Oral : 300 mg daily. Suboxone Sublingual : 8mg 2 x daily. ZyPREXA Oral : 5 mg daily. Prescription Medications: Keflex 500 mg: take 1 capsule orally every 6 hours for 7 days Mupirocin 2% ointment: apply small amount to affected area three times daily until symptoms resolved. Dispense twenty-two (22) grams. No refills. Nystatin Topical Cream: apply to affected areas twice daily as needed for rash. Dispense thirty (30) grams. No refills. Follow-up: Follow up with your doctor in about three days. Call for an appointment. Screening today revealed the patient's blood pressure to be in the hypertensive range. The patient should follow up with a primary care provider for blood pressure management. (Electronically signed by Dyllan Mckinley Dr. 03/04/2017 6:06)
--- NOTE | 2017-03-04 05:54 | ED CLINICAL REPORT ---
Clinical Report - Physicians/Mid Levels [facility] [address] [place] [place] [address] 03/04/2017 5:42 Patient: JIMBO GUSMAN Time Seen: 05:49; initial patient contact. Arrived- By private vehicle. Historian- patient. HISTORY OF PRESENT ILLNESS Chief Complaint: SKIN RASH. This started about 1 week ago and is still present. It was gradual in onset. It is described as itchy and painful. Not burning. It has been located on the trunk. No cause has been identified. No recent medication, insect bite or food exposure. Was not recently exposed to poison jose. Similar symptoms previously: Many times. Recent medical care: Not recently seen/assessed. REVIEW OF SYSTEMS No fever, chills or enlarged lymph nodes. All systems otherwise negative, except as recorded above. PAST HISTORY Otitis Externa. MRSA Infection. LNMP - Last Normal Menstrual Period. Substance Abuse. Lifestyle / Substance Problems. Tetanus Status. Abscess Check. Abscess. Cellulitis. Medications: Ralls Oral 300 mg , daily. Suboxone Sublingual 8mg , 2 x daily. ZyPREXA Oral 5 mg, daily. Allergies: Atropine. (Reaction as baby). SOCIAL HISTORY Current every day smoker. History of drug use: marijuana. ADDITIONAL NOTES The nursing notes have been reviewed. PHYSICAL EXAM Vital Signs: 03/04/2017 05:47 BP: 143/81. HR: 98. RR: 16. O2 saturation: 95%. Temp: 98 F. Have been reviewed. Hypertensive. Heart rate normal. Respiratory rate normal. Temperature normal. Oxygen saturation normal. Appearance: Alert. Oriented X3. No acute distress. Skin: Rash present on the trunk. There is weeping. Neuro: Oriented X 3. No motor deficit. PROGRESS AND PROCEDURES Disposition: Discharged home in good and improved condition. Condition: good. CLINICAL IMPRESSION Nonbullous impetigo Mild dermal candidiasis INSTRUCTIONS Your Current Medications: CONTINUE TAKING THE FOLLOWING MEDICATIONS: Ralls Oral : 300 mg daily. Suboxone Sublingual : 8mg 2 x daily. ZyPREXA Oral : 5 mg daily. Prescription Medications: Keflex 500 mg: take 1 capsule orally every 6 hours for 7 days Mupirocin 2% ointment: apply small amount to affected area three times daily until symptoms resolved. Dispense twenty-two (22) grams. No refills. Nystatin Topical Cream: apply to affected areas twice daily as needed for rash. Dispense thirty (30) grams. No refills. Follow-up: Follow up with your doctor in about three days. Call for an appointment. Screening today revealed the patient's blood pressure to be in the hypertensive range. The patient should follow up with a primary care provider for blood pressure management. (Electronically signed by Dyllan Mckinley Dr. 03/04/2017 6:06)
--- NOTE | 2017-03-04 05:54 | ED NURSING NOTES ---
Clinical Report - Nurses [facility] [address] [place] [address] 03/04/2017 5:42 Patient: JIMBO GUSMAN TRIAGE Triage time 05:47. Acuity: LEVEL 5. Chief Complaint: SKIN RASH and SKIN LESION. --05:57 Davide Norton R.N. 05:47 03/04/17. BP: 143/81. HR: 98. RR: 16. O2 saturation: 95%. Temp: 98 F. --05:57 Davide Norton R.N. Weight: 90.7 kg stated. Height/Length: 65 inches Per Patient. BMI: 33.3. --05:55 Davide Norton R.N. Medications [place] Oral 300 mg , daily. Suboxone Sublingual 8mg , 2 x daily. ZyPREXA Oral 5 mg, daily. --05:48 Davide Norton R.N. Allergies Atropine. (Reaction as baby) --05:48 Davide Norton R.N. Medication/allergy information source: the patient. --05:57 Davide Norton R.N. History ( rash/lesion under her breasts, groin, abdomen, face and buttocks and face. Seen here for same 3 weeks ago.). Reported as generalized in location. Onset. (3 weeks ago). Treatment RESIDENTIAL THERAPIST: (hydrogen peroxide). SOCIAL HX: Heavy tobacco smoker (cigarette)- 1 pack per day. Occasional alcohol use. History of drug use: marijuana. (1 weeks ago). --05:57 Davide Norton R.N. PROBLEMS: Otitis Externa. MRSA Infection. LNMP - Last Normal Menstrual Period. Substance Abuse. Lifestyle / Substance Problems. Tetanus Status. Abscess Check. Abscess. Cellulitis. Immunizations. --05:48 Davide Norton R.N. Interventions ID band on patient. To room. --05:57 Davide Norton R.N. PHYSICAL ASSESSMENT Ambulatory to room. GENERAL / NEURO / PSYCH: Alert. The patient does not appear to be in acute distress. Oriented X 4. RESPIRATORY: Respirations not labored. Breath sounds within normal limits. CVS: Capillary refill less than 2 seconds. SKIN: Skin is warm and dry. Multiple skin lesions on the face, neck, right and left breast, abdomen, back, waist area and perineum. --05:58 Davide Norton R.N. NURSING PROGRESS NOTES Patient identifiers checked. Call light placed in reach. Side rails up x 1. Bed placed in lowest position. Brakes of bed on. Patient ready for evaluation- chart flagged and ED physician notified. --05:58 Davide Norton R.N. DISPOSITION / DISCHARGE Condition at departure: stable. No learning barriers present. Discharge instructions provided and reviewed with the patient. Reviewed medication(s) side effects, precautions, dosing and course information. Prescription(s) given to the patient. Reviewed referral to a primary care physician for followup. Patient verbalized understanding. Written instructions provided in [place]. The patient was discharged home. She left the Emergency Department ambulatory and via private vehicle. Patient driving. --06:02 Davide Norton R.N. 06:01 03/04/17. BP: 138/79. HR: 97. RR: 16. O2 saturation: 95%. --06:02 Davide Norton R.N. Departure time: 06:02. --06:02 Davide Norton R.N. Locked/Released at 03/04/2017 6:05 by Davide Norton R.N.
--- NOTE | 2017-03-04 06:06 | ED MED RECONCILIATION SUMMARY ---
Patient: JIMBO GUSMAN Medication Reconciliation Report [facility] VisitID: [id number] [address] [place] [address] 31y, F Registration Date/Time: 03/04/2017 Weight: 90.7 kg Height/Length: 65 in. BMI: 33.3 ALLERGIES: Atropine The patient's Home Medications are listed below: CONTINUE TAKING THE FOLLOWING MEDICATIONS: [place] Oral 300 mg , daily Suboxone Sublingual 8mg , 2 x daily ZyPREXA Oral 5 mg, daily The source(s) of the original Home Medication information: patient The following Medications were given to the patient in the Emergency Department: None. The following Medications were prescribed to the patient: Keflex 500 mg: take 1 capsule orally every 6 hours for 7 days -- Dyllan Mckinley Dr. Mupirocin 2% ointment: apply small amount to affected area three times daily until symptoms resolved. Dispense twenty-two (22) grams. No refills. -- Dyllan Mckinley Dr. Nystatin Topical Cream: apply to affected areas twice daily as needed for rash. Dispense thirty (30) grams. No refills. -- Dyllan Mckinley Dr.
--- NOTE | 2017-03-04 06:06 | ED MAR SUMMARY ---
..... Medication Administration Record [facility] [address] [place], [place] [id number] Patient: JIMBO GUSMAN Visit ID: [id number] 31y, F Weight: 90.7 kg Height/Length: 65 in BMI: 33.3 ALLERGIES: Atropine
--- NOTE | 2017-03-04 06:06 | ED MAR SUMMARY ---
..... Medication Administration Record [facility] [address] [place], [place] [id number] Patient: JIMBO GUSMAN Visit ID: [id number] 31y, F Weight: 90.7 kg Height/Length: 65 in BMI: 33.3 ALLERGIES: Atropine
--- NOTE | 2017-03-04 06:06 | ED MED RECONCILIATION SUMMARY ---
Patient: JIMBO GUSMAN Medication Reconciliation Report [facility] VisitID: [id number] [address] [place] [address] 31y, F Registration Date/Time: 03/04/2017 Weight: 90.7 kg Height/Length: 65 in. BMI: 33.3 ALLERGIES: Atropine The patient's Home Medications are listed below: CONTINUE TAKING THE FOLLOWING MEDICATIONS: [place] Oral 300 mg , daily Suboxone Sublingual 8mg , 2 x daily ZyPREXA Oral 5 mg, daily The source(s) of the original Home Medication information: patient The following Medications were given to the patient in the Emergency Department: None. The following Medications were prescribed to the patient: Keflex 500 mg: take 1 capsule orally every 6 hours for 7 days -- Dyllan Mckinley Dr. Mupirocin 2% ointment: apply small amount to affected area three times daily until symptoms resolved. Dispense twenty-two (22) grams. No refills. -- Dyllan Mckinley Dr. Nystatin Topical Cream: apply to affected areas twice daily as needed for rash. Dispense thirty (30) grams. No refills. -- Dyllan Mckinley Dr.
--- NOTE | 2017-03-04 06:06 | ED DISCHARGE INSTRUCTIONS ---
Patient: JIMBO GUSMAN General Instructions [facility] VisitID: [id number] [place] [address] 31y, F Registration Date/Time: 03/04/2017 Nonbullous impetigo Mild dermal candidiasis INSTRUCTIONS Your Current Medications: CONTINUE TAKING THE FOLLOWING MEDICATIONS: [place] Oral : 300 mg daily. Suboxone Sublingual : 8mg 2 x daily. ZyPREXA Oral : 5 mg daily. Prescription Medications: Keflex 500 mg: take 1 capsule orally every 6 hours for 7 days Mupirocin 2% ointment: apply small amount to affected area three times daily until symptoms resolved. Dispense twenty-two (22) grams. No refills. Nystatin Topical Cream: apply to affected areas twice daily as needed for rash. Dispense thirty (30) grams. No refills. Follow-up: Follow up with your doctor in about three days. Call for an appointment. Screening today revealed the patient's blood pressure to be in the hypertensive range. The patient should follow up with a primary care provider for blood pressure management. ADDITIONAL INFORMATION Impetigo Impetigo is the name for a bacterial infection of the skin. It is common in children. It may start as an infected insect bite or scratch and spread rapidly to other areas of the body. It is contagious and can be given to other children by touching. The sores usually have a morris brown crust and grow gradually larger as they spread. Impetigo requires treatment with an antibiotic. Home care The following guidelines will help you care for your infection at home: Trim fingernails and cover sores with an adhesive bandage if necessary to prevent scratching. Picking at the sores may leave a scar. Wash hands (yours and your child's) often. This will avoid spreading the infection to other parts of the body and to other children. Do not let your child share washcloths, towels, pillows, sheets, or clothes with others. Wash these items in hot water before using again. The sores should be washed three times a day with soap and water. Use a washcloth to scrub the sores and remove the crust. Then apply an antibacterial cream as directed. If antibiotic pills or liquid was prescribed, be sure your child takes all the medicine until it is gone. Your child should stay out of school until completing two full days of antibiotic treatment. Use acetaminophen for fever, fussiness or discomfort, unless another medicine was prescribed. In infants over six months of age, you may use ibuprofen instead of acetaminophen. If your child has chronic liver or kidney disease or has ever had a stomach ulcer or GI bleeding, talk with your doctor before using these medicines. (Aspirin should never be used in anyone under 18 years of age who is ill with a fever. It may cause severe liver damage. Follow-up care Follow up with your doctor or this facility if the sores continue to spread after three days of treatment. It will take about 710 days to heal completely. When to seek medical care Get prompt medical attention if any of the following occur: Increasing number of sores or spreading areas of redness after two days of treatment with antibiotics Increasing swelling, or pain Fever of 100.4F (38C) oral or 101.4F (38.5C) rectal or higher, not better with fever medication Increased amounts of fluid or pus coming from the sores Unusual drowsiness, weakness, or change in behavior Loss of appetite or vomiting Lilly Skin Infection (Adult) Your skin rash is caused by an infection with lilly (a form of yeast). It often appears in folds of the skin where moisture builds up. This commonly occurs under the breast or in the groin creases. It is more likely to appear in persons who are overweight or have decreased immune function (persons with diabetes, cancer, or HIV). The rash will clear in 7 to14 days using the cream prescribed. Home Care: Keep the skin clean by washing the area twice a day. Use the prescribed cream as directed until the rash has fully cleared. Once the rash has healed, keep the skin dry to prevent another infection.Drying powders may help. If you are overweight, talk to your doctor about a plan to lose excess weight. Follow Up with your doctor as advised, if the rash is not cleared after2 weeks. Get Prompt Medical Attention if any of the following occur: Increasing pain and spreading area of redness Fluid drainage or yellow crusting at the site of rash Fever of 100.4F (38C) or higher, or as directed by your healthcare provider White spots inside the mouth Painful swallowing Nystatin, Triamcinolone Acetonide Topical ointment What is this medicine? NYSTATIN; TRIAMCINOLONE (cuauhtemoc STAT in; trye am SIN [place]) is a combination of an antifungal medicine and a steroid. It is used to treat certain kinds of fungal or yeast infections of the skin. How should I use this medicine? This medicine is for external use only. Do not take by mouth. Follow the directions on the prescription label. Wash your hands before and after use. If treating hand or nail infections, wash hands before use only. Apply a thin layer of this medicine to the affected area and rub in gently. Do not use on healthy skin or over large areas of skin. Do not get this medicine in your eyes. If you do, rinse out with plenty of cool tap water. When applying to the groin area, apply a limited amount and do not use for longer than 2 weeks unless directed to by your doctor or health child care director. Do not cover or wrap the treated area with an airtight bandage (such as a plastic bandage). Use the full course of treatment prescribed, even if you think the infection is getting better. Use at regular intervals. Do not use your medicine more often than directed. Do not use this medicine for any condition other than the one for which it was prescribed. Talk to your costume shop manager regarding the use of this medicine in children. While this drug may be prescribed for selected conditions, precautions do apply. Children being treated in the diaper area should not wear tight-fitting diapers or plastic pants. Elderly patients are more likely to have damaged skin through aging, and this may increase side effects. This medicine should only be used for brief periods and infrequently in older patients. What side effects may I notice from receiving this medicine? Side effects that you should report to your doctor or health child care director as soon as possible: burning or itching of the skin dark red spots on the skin loss of feeling on skin painful, red, pus-filled blisters in hair follicles skin infection thinning of the skin or sunburn: more likely if applied to the face Side effects that usually do not require medical attention (report to your doctor or health child care director if they continue or are bothersome): dry or peeling skin skin irritation What may interact with this medicine? Interactions are not expected. Do not use any other skin products on the affected area without telling your doctor or health child care director. What if I miss a dose? If you miss a dose, use it as soon as you can. If it is almost time for your next dose, use only that dose. Do not use double or extra doses. Where should I keep my medicine? Keep out of the reach of children. Store at room temperature between 15 and 30 degrees C (59 and 86 degrees F). Do not freeze. Throw away any unused medicine after the expiration date. What should I tell my health care provider before I take this medicine? They need to know if you have any of these conditions: large areas of burned or damaged skin skin wasting or thinning peripheral vascular disease or poor circulation an unusual or allergic reaction to nystatin, triamcinolone, other corticosteroids, other medicines, foods, dyes, or preservatives or trying to get breast-feeding What should I watch for while using this medicine? Tell your doctor or health child care director if your symptoms do not start to get better within 1 week when treating the groin area or within 2 weeks when treating the feet. . Tell your doctor or health child care director if you develop sores or blisters that do not heal properly. If your skin infection returns after stopping this medicine, contact your doctor or health child care director. If you are using this medicine to treat an infection in the groin area, do not wear underwear that is tight-fitting or made from synthetic fibers such as latosha or nylon. Instead, wear loose-fitting, cotton underwear. Also dry the area completely after bathing. You have been given the following additional information: Impetigo (Child) Lilly Skin Infection (Adult) Nystatin, Triamcinolone Acetonide Topical ointment (Electronically signed by Dyllan Mckinley Dr. 03/04/2017 6:06)
--- NOTE | 2017-03-04 06:06 | ED DISCHARGE INSTRUCTIONS ---
Patient: JIMBO GUSMAN General Instructions [facility] VisitID: [id number] [place] [address] 31y, F Registration Date/Time: 03/04/2017 Nonbullous impetigo Mild dermal candidiasis INSTRUCTIONS Your Current Medications: CONTINUE TAKING THE FOLLOWING MEDICATIONS: Gerrard Oral : 300 mg daily. Suboxone Sublingual : 8mg 2 x daily. ZyPREXA Oral : 5 mg daily. Prescription Medications: Keflex 500 mg: take 1 capsule orally every 6 hours for 7 days Mupirocin 2% ointment: apply small amount to affected area three times daily until symptoms resolved. Dispense twenty-two (22) grams. No refills. Nystatin Topical Cream: apply to affected areas twice daily as needed for rash. Dispense thirty (30) grams. No refills. Follow-up: Follow up with your doctor in about three days. Call for an appointment. Screening today revealed the patient's blood pressure to be in the hypertensive range. The patient should follow up with a primary care provider for blood pressure management. ADDITIONAL INFORMATION Impetigo Impetigo is the name for a bacterial infection of the skin. It is common in children. It may start as an infected insect bite or scratch and spread rapidly to other areas of the body. It is contagious and can be given to other children by touching. The sores usually have a morris brown crust and grow gradually larger as they spread. Impetigo requires treatment with an antibiotic. Home care The following guidelines will help you care for your infection at home: Trim fingernails and cover sores with an adhesive bandage if necessary to prevent scratching. Picking at the sores may leave a scar. Wash hands (yours and your child's) often. This will avoid spreading the infection to other parts of the body and to other children. Do not let your child share washcloths, towels, pillows, sheets, or clothes with others. Wash these items in hot water before using again. The sores should be washed three times a day with soap and water. Use a washcloth to scrub the sores and remove the crust. Then apply an antibacterial cream as directed. If antibiotic pills or liquid was prescribed, be sure your child takes all the medicine until it is gone. Your child should stay out of school until completing two full days of antibiotic treatment. Use acetaminophen for fever, fussiness or discomfort, unless another medicine was prescribed. In infants over six months of age, you may use ibuprofen instead of acetaminophen. If your child has chronic liver or kidney disease or has ever had a stomach ulcer or GI bleeding, talk with your doctor before using these medicines. (Aspirin should never be used in anyone under 18 years of age who is ill with a fever. It may cause severe liver damage. Follow-up care Follow up with your doctor or this facility if the sores continue to spread after three days of treatment. It will take about 710 days to heal completely. When to seek medical care Get prompt medical attention if any of the following occur: Increasing number of sores or spreading areas of redness after two days of treatment with antibiotics Increasing swelling, or pain Fever of 100.4F (38C) oral or 101.4F (38.5C) rectal or higher, not better with fever medication Increased amounts of fluid or pus coming from the sores Unusual drowsiness, weakness, or change in behavior Loss of appetite or vomiting Lilly Skin Infection (Adult) Your skin rash is caused by an infection with lilly (a form of yeast). It often appears in folds of the skin where moisture builds up. This commonly occurs under the breast or in the groin creases. It is more likely to appear in persons who are overweight or have decreased immune function (persons with diabetes, cancer, or HIV). The rash will clear in 7 to14 days using the cream prescribed. Home Care: Keep the skin clean by washing the area twice a day. Use the prescribed cream as directed until the rash has fully cleared. Once the rash has healed, keep the skin dry to prevent another infection.Drying powders may help. If you are overweight, talk to your doctor about a plan to lose excess weight. Follow Up with your doctor as advised, if the rash is not cleared after2 weeks. Get Prompt Medical Attention if any of the following occur: Increasing pain and spreading area of redness Fluid drainage or yellow crusting at the site of rash Fever of 100.4F (38C) or higher, or as directed by your healthcare provider White spots inside the mouth Painful swallowing Nystatin, Triamcinolone Acetonide Topical ointment What is this medicine? NYSTATIN; TRIAMCINOLONE (cuauhtemoc STAT in; trye am SIN [place]) is a combination of an antifungal medicine and a steroid. It is used to treat certain kinds of fungal or yeast infections of the skin. How should I use this medicine? This medicine is for external use only. Do not take by mouth. Follow the directions on the prescription label. Wash your hands before and after use. If treating hand or nail infections, wash hands before use only. Apply a thin layer of this medicine to the affected area and rub in gently. Do not use on healthy skin or over large areas of skin. Do not get this medicine in your eyes. If you do, rinse out with plenty of cool tap water. When applying to the groin area, apply a limited amount and do not use for longer than 2 weeks unless directed to by your doctor or health critical care unit manager. Do not cover or wrap the treated area with an airtight bandage (such as a plastic bandage). Use the full course of treatment prescribed, even if you think the infection is getting better. Use at regular intervals. Do not use your medicine more often than directed. Do not use this medicine for any condition other than the one for which it was prescribed. Talk to your flat locker regarding the use of this medicine in children. While this drug may be prescribed for selected conditions, precautions do apply. Children being treated in the diaper area should not wear tight-fitting diapers or plastic pants. Elderly patients are more likely to have damaged skin through aging, and this may increase side effects. This medicine should only be used for brief periods and infrequently in older patients. What side effects may I notice from receiving this medicine? Side effects that you should report to your doctor or health critical care unit manager as soon as possible: burning or itching of the skin dark red spots on the skin loss of feeling on skin painful, red, pus-filled blisters in hair follicles skin infection thinning of the skin or sunburn: more likely if applied to the face Side effects that usually do not require medical attention (report to your doctor or health critical care unit manager if they continue or are bothersome): dry or peeling skin skin irritation What may interact with this medicine? Interactions are not expected. Do not use any other skin products on the affected area without telling your doctor or health critical care unit manager. What if I miss a dose? If you miss a dose, use it as soon as you can. If it is almost time for your next dose, use only that dose. Do not use double or extra doses. Where should I keep my medicine? Keep out of the reach of children. Store at room temperature between 15 and 30 degrees C (59 and 86 degrees F). Do not freeze. Throw away any unused medicine after the expiration date. What should I tell my health care provider before I take this medicine? They need to know if you have any of these conditions: large areas of burned or damaged skin skin wasting or thinning peripheral vascular disease or poor circulation an unusual or allergic reaction to nystatin, triamcinolone, other corticosteroids, other medicines, foods, dyes, or preservatives or trying to get breast-feeding What should I watch for while using this medicine? Tell your doctor or health critical care unit manager if your symptoms do not start to get better within 1 week when treating the groin area or within 2 weeks when treating the feet. . Tell your doctor or health critical care unit manager if you develop sores or blisters that do not heal properly. If your skin infection returns after stopping this medicine, contact your doctor or health critical care unit manager. If you are using this medicine to treat an infection in the groin area, do not wear underwear that is tight-fitting or made from synthetic fibers such as latosha or nylon. Instead, wear loose-fitting, cotton underwear. Also dry the area completely after bathing. You have been given the following additional information: Impetigo (Child) Lilly Skin Infection (Adult) Nystatin, Triamcinolone Acetonide Topical ointment (Electronically signed by Dyllan Mckinley Dr. 03/04/2017 6:06)
== END 2017-03-04 06:02 | disposition home or self-care (01) ==
LOC: ED SRH 05:42
DX: L01.01 Non-bullous impetigo (principal); B37.2 Candidiasis of skin and nail; F17.200 Nicotine dependence, unspecified, uncomplicated; Z86.14 Personal history of Methicillin resistant Staphylococcus aureus infection; Z79.891 Long term (current) use of opiate analgesic; Z79.899 Other long term (current) drug therapy